=== PATIENT | male | born 1965 | race Caucasian/White ===

== ENCOUNTER 2017-10-27 22:31 | Emergency (ER) | payer OTHER ==
[2017-10-28 03:45] VITALS: RESP 18
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
[2017-10-28 08:12] VITALS: BP 143/89; PULSE 98; TEMP 97
== END 2017-10-28 08:11 | disposition home or self-care (01) ==
LOC: EC 22:31
DX: F10.120 Alcohol abuse with intoxication, uncomplicated (principal); Z87.891 Personal history of nicotine dependence
CPT/HCPCS: 99283

== ENCOUNTER 2020-06-15 17:21 | Emergency (ER) | payer OTHER ==
[2020-06-15 17:47] VITALS: RESP 18
--- NOTE | 2020-06-15 19:15 | XR ---
EXAMINATION TYPE: XR ribs LT w pa chest xray DATE OF EXAM: 06/15/2020 COMPARISON: NONE HISTORY: Left-sided rib pain TECHNIQUE: 6 views FINDINGS: There is no heart failure nor confluent pneumonic infiltrate. There is possible nondisplace d fracture anterior left sixth rib. Costophrenic angles are clear. The clavicles are intact. IMPRESSION: There is probably an acute fracture anterior left sixth rib.
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
[2020-06-16 06:41] VITALS: BP 162/98; PULSE 106; TEMP 97.7
== END 2020-06-16 07:45 | disposition home or self-care (01) ==
LOC: EC 17:21
DX: S22.32XA Fracture of one rib, left side, initial encounter for closed fracture (principal); F10.129 Alcohol abuse with intoxication, unspecified; Y90.9 Presence of alcohol in blood, level not specified; Z59.0 Homelessness; Z87.891 Personal history of nicotine dependence; V29.9XXA Motorcycle rider (driver) (passenger) injured in unspecified traffic accident, initial encounter; Y93.55 Activity, bike riding; Y92.89 Other specified places as the place of occurrence of the external cause
CPT/HCPCS: 82075; 99284

== ENCOUNTER 2021-04-25 23:27 | Emergency (ER) | payer OTHER ==
[2021-04-25 23:40] VITALS: RESP 18; TEMP 99.4
--- NOTE | 2021-04-26 06:17 | ED ---
Alcohol HPI - General Chief Complaint: Alcohol Stated Complaint: ETOH Time Seen by Provider: 04/25/21 23:31 Source: patient, EMS Mode of arrival: EMS Limitations: altered mental status - Related Data Home Medications Medication Instructions Recorded Confirmed No Known Home Medications 10/28/17 06/15/20 Allergies Allergy/AdvReac Type Severity Reaction Status Date / Time No Known Allergies Allergy Verified 04/25/21 23:40 Review of Systems ROS Statement: Those systems with pertinent positive or pertinent negative responses have been documented in the HPI. ROS Other: All systems not noted in ROS Statement are negative. Past Medical History Past Medical History: No Reported History Additional Past Medical History / Comment(s): closed head injury History of Any Multi-Drug Resistant Organisms: None Reported Past Surgical History: Unable to Obtain Past Psychological History: No Psychological Hx Reported Smoking Status: Former smoker, Unknown if ever smoked Past Alcohol Use History: Heavy Past Drug Use History: None Reported General Exam Limitations: altered mental status Course Vital Signs 04/25/21 04/26/21 23:38 02:00 Temperature 99.4 F Pulse Rate 82 77 Respiratory 18 18 Rate Blood Pressure 145/88 143/89 O2 Sat by Pulse 97 97 Oximetry Disposition Clinical Impression: Alcoholic intoxication Disposition: HOME SELF-CARE Condition: Good Instructions (If sedation given, give patient instructions): Alcohol Intoxication (ED) Is patient prescribed a controlled substance at d/c from ED?: No Referrals: None,Stated [Primary Care Provider] - 1-2 days
[2021-04-26 06:34] VITALS: BP 155/88; PULSE 82
== END 2021-04-26 06:34 | disposition home or self-care (01) ==
LOC: EC 23:27
DX: F10.929 Alcohol use, unspecified with intoxication, unspecified (principal); Y90.9 Presence of alcohol in blood, level not specified
CPT/HCPCS: 99284

== ENCOUNTER 2021-05-04 20:50 | Inpatient (IN) | payer OTHER ==
--- NOTE | 2021-05-04 21:21 | ED ---
Chest Pain HPI - General Chief Complaint: Chest Pain Stated Complaint: Chest pain, ETOH Time Seen by Provider: 05/04/21 21:17 Source: patient, EMS, RN notes reviewed, old records reviewed Mode of arrival: EMS Limitations: altered mental status, physical limitation - History of Present Illness Initial Comments: This is a 55-year-old male to the emergency department today. Patient presents with chest pain by EMS, EMS was called patient was walking around [facility] with chest pain today. Patient also admits to drinking 12 beers today. Patient was seen at outside facility recently for similar events and was told that he discontinue his drinking. Patient has not discontinued his drinking. He denies abdominal pain complaints chest pain. MD Complaint: chest pain, other (weakness, not feeling well) -: unknown Onset: during rest, during exertion Pain Location: substernal Pain Radiation: none Severity: moderate Severity scale (1-10): 6 Quality: tightness, heaviness Consistency: constant Improves With: nothing Worsens With: exertion Context: other (Alcohol abuse) Anginal Symptoms: diaphoresis, dyspnea Other Symptoms: palpitations Treatments Prior to Arrival: none - Related Data Home Medications Medication Instructions Recorded Confirmed No Known Home Medications 10/28/17 05/04/21 Allergies Allergy/AdvReac Type Severity Reaction Status Date / Time No Known Allergies Allergy Verified 05/04/21 22:33 Review of Systems ROS Statement: Those systems with pertinent positive or pertinent negative responses have been documented in the HPI. ROS Other: All systems not noted in ROS Statement are negative. EKG Findings - EKG Comments: EKG Findings:: EKG shows nsr 82 pr 150 qrs 90 qtc 488 Past Medical History Past Medical History: No Reported History Additional Past Medical History / Comment(s): closed head injury History of Any Multi-Drug Resistant Organisms: None Reported Past Surgical History: Unable to Obtain Past Psychological History: No Psychological Hx Reported Smoking Status: Former smoker Past Alcohol Use History: Daily, Heavy Past Drug Use History: None Reported General Exam Limitations: no limitations, altered mental status, physical limitation General appearance: alert, in distress, other (Diaphoretic) Head exam: Present: atraumatic, normocephalic, normal inspection Eye exam: Present: normal appearance, PERRL, EOMI. Absent: scleral icterus, conjunctival injection, periorbital swelling ENT exam: Present: normal exam, mucous membranes moist Neck exam: Present: normal inspection. Absent: tenderness, meningismus, lymphadenopathy Respiratory exam: Present: normal lung sounds bilaterally. Absent: respiratory distress, wheezes, rales, rhonchi, stridor Cardiovascular Exam: Present: normal rhythm, tachycardia, normal heart sounds. Absent: systolic murmur, diastolic murmur, rubs, gallop, clicks GI/Abdominal exam: Present: soft, normal bowel sounds. Absent: distended, tenderness, guarding, rebound, rigid Extremities exam: Present: normal inspection, full ROM, normal capillary refill. Absent: tenderness, pedal edema, joint swelling, calf tenderness Back exam: Present: normal inspection Neurological exam: Present: alert, oriented X3, CN II-XII intact Psychiatric exam: Present: normal affect, normal mood Skin exam: Present: warm, dry, intact, normal color, diaphoretic. Absent: rash Course Vital Signs 05/04/21 05/04/21 20:52 21:57 Temperature 98.8 F Pulse Rate 88 86 Respiratory 18 18 Rate Blood Pressure 109/62 119/71 O2 Sat by Pulse 96 96 Oximetry - Reevaluation(s) Reevaluation #1: 05/04/21 23:04 Medical record is reviewed Reevaluation #2: 05/04/21 23:04 Symptoms are persistent here in the emergency department Reevaluation #3: 05/04/21 23:04 Patient is beginning to go through DTs with altered mental status and tremors, severe diaphoresis tachycardia and fever Reevaluation #4: 05/04/21 23:05 Patient informed of results and questions are answered - Consultations Consultation #1: Spoke with PMH who agree to admit this patient Chest Pain MDM - MDM 55 male presenting for alcohol abuse and throughout ER stay beginning to go through DTs, as well as chest pain. Patiently place and chest pain observation, monitoring unstable on CIWA protocol Critical Care Time Critical Care Time: Yes Total Critical Care Time: 31 Disposition Clinical Impression: Alcoholic intoxication, Chest pain, Delirium tremens, Weakness, Altered mental status Disposition: ADMITTED IP TO THIS [facility] Condition: Serious Is patient prescribed a controlled substance at d/c from ED?: No Referrals: None,Stated [Primary Care Provider] - 1-2 days
--- NOTE | 2021-05-04 21:47 | XR ---
EXAMINATION TYPE: XR chest 1V portable DATE OF EXAM: 05/04/2021 COMPARISON: 06/15/2020 HISTORY: Chest pain TECHNIQUE: FINDINGS: There is no heart failure nor confluent pneumonic infiltrate. Costophrenic angles are clear . There are no hilar masses. There is questionable infiltrate lateral to the right pulmonary hilum. T here is no pleural effusion. Bony thorax is intact. IMPRESSION: Possible new right perihilar infiltrate compared to old exam. No heart failure.
[2021-05-04 22:08] LABS: Partial Thromboplastin Time 23.9 sec (22.0-30.0); Prothrombin Time 10.4 sec (9.0-12.0)
[2021-05-04 22:23] LABS: ALT 34 U/L (4-49); AST 42 U/L (17-59); African American GFR (CKD) >90 (>60 ml/min/1.73 sqM); Albumin 3.6 g/dL (3.5-5.0); Alkaline Phosphatase 65 U/L (38-126); Anion Gap 11 mmol/L; Blood Urea Nitrogen 17 mg/dL (9-20); Calcium 8.7 mg/dL (8.4-10.2); Carbon Dioxide 24 mmol/L (22-30); Chloride 106 mmol/L (98-107); Creatine Kinase 191 U/L (55-170); Glucose 95 mg/dL (74-99); Magnesium 1.3 mg/dL (1.6-2.3); Non-African American GFR(CKD) 81 (>60 ml/min/1.73 sqM); Potassium 3.7 mmol/L (3.5-5.1); Sodium 141 mmol/L (137-145); Total Bilirubin <0.1 mg/dL (0.2-1.3); Total Protein 6.2 g/dL (6.3-8.2)
[2021-05-04 22:43] LABS: Basophils % (A) 0 %; Eosinophils # (A) 0.1 k/uL (0-0.7); Eosinophils % (A) 2 %; HGB 12.4 gm/dL (13.0-17.5); Lymphocytes # (A) 1.3 k/uL (1.0-4.8); Lymphocytes % (A) 36 %; MCHC 34.4 g/dL (31.0-37.0); MCV 98.9 fL (80.0-100.0); Macrocytosis Slight; Mean Platelet Volume 6.8; Monocytes # (A) 0.2 k/uL (0-1.0); Monocytes % (A) 7 %; Neutrophils # (A) 1.8 k/uL (1.3-7.7); Neutrophils % (A) 51 %; Platelet Count 186 k/uL (150-450); RBC 3.64 m/uL (4.30-5.90); RDW 15.3 % (11.5-15.5); WBC 3.5 k/uL (3.8-10.6)
[2021-05-04] MEDS ORDERED: NALOXONE 0.4 MG/ML 1 ML VIAL IV PRN (22:58)
[2021-05-04] MEDS ORDERED: THIAMINE 100 MG/ML 2 ML VIAL IM STA (22:58)
[2021-05-04] MEDS ORDERED: LORazepam 2 MG/ML INJ IV PRN ×3 (22:58)
[2021-05-04] MEDS ORDERED: ONDANSETRON 4 MG/2 ML VIAL IVP PRN (22:58)
[2021-05-04] MEDS ORDERED: MORPHINE SULFATE 4 MG/ML SYRINGE IV PRN (22:58)
[2021-05-04] MEDS ORDERED: SODIUM CHLORIDE 0.9% 500 ML 500 ML IV STA (23:00)
[2021-05-04] MEDS ORDERED: SODIUM CHLORIDE 0.9% 1,000 ML IV STA ×2 (23:00)
[2021-05-04] MEDS ORDERED: PANTOPRAZOLE 40 MG/10 ML VIAL IVP STA (23:00)
[2021-05-04] MEDS ORDERED: HEPARIN SODIUM 1,000 UN/ML (10ML VL) IV ONE (23:33)
[2021-05-04] MEDS ORDERED: diphenhydrAMINE 50 MG/ML 1 ML VIAL IVP STA (23:37)
[2021-05-04] MEDS ORDERED: methylPREDNISolone SOD SUCCI 125 MG/2 ML VIAL IV STA (23:37)
[2021-05-04] MEDS: MAGNESIUM SULFATE-D5W PMX 1 GM in DEXTROSE/WATER 1 100ML.BAG IVPB SCH (23:41)
[2021-05-04] MEDS: DEXTROSE 5%-0.45% NACL 1,000 ML IV SCH (23:48)
[2021-05-04] MEDS: HEPARIN SOD,PORK IN 0.45% NACL 25,000 UNIT in 0.45% NACL 1 250ML.BAG IV SCH (23:56)
[2021-05-05] MEDS: DIAZEPAM 5 MG/ML 2 ML INJ IVP SCH ×4 (00:05→16:14)
[2021-05-05] MEDS: MAGNESIUM SULFATE-D5W PMX 1 GM in DEXTROSE/WATER 1 100ML.BAG IVPB SCH ×2 (00:38→01:44)
[2021-05-05] MEDS: THIAMINE 100 MG TAB PO SCH ×2 (06:36→16:13)
[2021-05-05 07:36] LABS: Basophils % (A) 0 %; Eosinophils % (A) 0 %; HCT 43.2 % (39.0-53.0); HGB 14.1 gm/dL (13.0-17.5); Lymphocytes # (A) 0.4 k/uL (1.0-4.8); Lymphocytes % (A) 5 %; MCH 32.9 pg (25.0-35.0); MCHC 32.6 g/dL (31.0-37.0); MCV 100.9 fL (80.0-100.0); Macrocytosis Slight; Mean Platelet Volume 6.6; Monocytes # (A) 0.1 k/uL (0-1.0); Monocytes % (A) 2 %; Neutrophils # (A) 6.1 k/uL (1.3-7.7); Neutrophils % (A) 92 %; Platelet Count 169 k/uL (150-450); RBC 4.28 m/uL (4.30-5.90); RDW 15.1 % (11.5-15.5); WBC 6.7 k/uL (3.8-10.6)
[2021-05-05 07:47] LABS: ALT 31 U/L (4-49); AST 33 U/L (17-59); African American GFR (CKD) >90 (>60 ml/min/1.73 sqM); Albumin 3.6 g/dL (3.5-5.0); Alkaline Phosphatase 78 U/L (38-126); Anion Gap 7 mmol/L; Blood Urea Nitrogen 16 mg/dL (9-20); Calcium 8.4 mg/dL (8.4-10.2); Carbon Dioxide 21 mmol/L (22-30); Chloride 107 mmol/L (98-107); Glucose 169 mg/dL (74-99); Magnesium 1.8 mg/dL (1.6-2.3); Non-African American GFR(CKD) >90 (>60 ml/min/1.73 sqM); Potassium 4.5 mmol/L (3.5-5.1); Sodium 135 mmol/L (137-145); Total Bilirubin 0.5 mg/dL (0.2-1.3); Total Protein 6.3 g/dL (6.3-8.2)
[2021-05-05] MEDS ORDERED: HEPARIN SODIUM 1,000 UN/ML (10ML VL) IV ONE (08:17)
--- NOTE | 2021-05-05 08:42 | XR ---
EXAMINATION TYPE: XR chest 1V portable DATE OF EXAM: 05/05/2021 COMPARISON: 05/04/2021 INDICATION: Infiltrates abnormal chest x-ray chest pain TECHNIQUE: Single frontal view of the chest is obtained. FINDINGS: The heart size is normal. The pulmonary vasculature is normal. Streak opacification of the right midlung. Correlate for atelectasis. IMPRESSION: 1. Streak atelectasis right midlung. Continued follow-up is recommended
[2021-05-05] MEDS ORDERED: PANTOPRAZOLE 40 MG/10 ML VIAL IV SCH (09:00)
[2021-05-05] MEDS: FAMOTIDINE 20 MG/2 ML VIAL IV SCH (09:10)
[2021-05-05] MEDS: DEXTROSE 5%-0.45% NACL 1,000 ML IV SCH ×2 (09:10→18:08)
--- NOTE | 2021-05-05 11:40 | P.CRDCN ---
History of Present Illness Consult date: 05/05/21 Chief complaint: Heart racing History of present illness: This is a 55-year-old gentleman who does not take any medications at home but was diagnosed with high blood pressure in the past presented to the emergency department complaining of chest discomfort and heart racing. He was drinking he was yesterday and he states that he drink 16 beers yesterday when he felt his heart start racing up and he felt dizzy and lightheaded. He did not lose his consciousness. He describes with that also chest discomfort. Currently he is chest pain-free. When he presented to the emergency department he was in atrial fibrillation with rapid ventricular response and subsequently he was converted to normal sinus mechanism. Currently he is in normal sinus mechanism with sinus tachycardia. The troponin came in to be unremarkable. The chest x-ray did not show any acute abnormalities. The EKG showed sinus rhythm without any significant ST or T-wave abnormalities. Currently the patient is on heparin IV. He is not on any AV rashid abdirashid agent would start the patient on Toprol-XL 25 mg by mouth daily. We will obtain an echocardiogram as well Past Medical History Past Medical History: No Reported History Additional Past Medical History / Comment(s): closed head injury History of Any Multi-Drug Resistant Organisms: None Reported Past Surgical History: Unable to Obtain Past Psychological History: No Psychological Hx Reported Smoking Status: Never smoker Past Alcohol Use History: Daily, Heavy Past Drug Use History: None Reported Medications and Allergies Home Medications Medication Instructions Recorded Confirmed Type No Known Home Medications 10/28/17 05/04/21 History Allergies Allergy/AdvReac Type Severity Reaction Status Date / Time No Known Allergies Allergy Verified 05/04/21 22:33 Physical Exam Vitals: Vital Signs Temp Pulse Pulse Resp BP BP Pulse Ox 05/05/21 08:00 97.8 F 82 18 160/96 99 05/05/21 04:00 98.4 F 68 18 122/67 98 05/05/21 02:00 98.3 F 73 85 18 119/66 137/86 97 05/05/21 01:00 76 18 118/67 05/05/21 00:10 91 18 98/74 05/05/21 00:00 151 H 18 114/101 100 05/04/21 23:50 126 H 18 140/94 100 05/04/21 23:28 137 H 18 101/70 99 05/04/21 23:23 137 H 18 115/71 98 05/04/21 23:14 131 H 20 96/75 99 05/04/21 23:10 132 H 20 82/67 94 L 05/04/21 23:00 146 H 22 95/65 85 L 05/04/21 21:57 86 18 119/71 96 05/04/21 20:52 98.8 F 88 18 109/62 96 Intake and Output 05/04/21 05/05/21 05/05/21 22:59 06:59 14:59 Intake Total 82.617 Output Total 600 525 Balance -600 -442.383 Intake: Intake, IV Titration 82.617 Amount Heparin Sod,Pork in 0.45% 82.617 NaCl 25,000 unit In 0.45 % NaCl 1 250ml.bag @ 9.18 UNITS/KG/HR 9.994 mls/hr IV .Q24H [facility] Rx#: [id number] Output: Urine 600 525 Other: Voiding Method Urinal Urinal Weight 108.862 kg 107 kg - Constitutional General appearance: no acute distress - Respiratory Respiratory: bilateral: CTA - Cardiovascular Rhythm: regular Heart sounds: normal: S1, S2 Abnormal Heart Sounds: systolic murmur Results 05/05/21 07:08 05/05/21 07:08 Cardiac Enzymes 05/04/21 05/04/21 05/04/21 Range/Units 21:41 21:41 23:39 AST 42 (17-59) U/L Troponin I <0.012 <0.012 (0.000-0.034) ng/mL 05/05/21 05/05/21 Range/Units 02:47 07:08 AST 33 (17-59) U/L Troponin I 0.022 (0.000-0.034) ng/mL Coagulation 05/04/21 05/05/21 Range/Units 21:41 07:08 PT 10.4 (9.0-12.0) sec APTT 23.9 30.6 H (22.0-30.0) sec CBC 05/04/21 05/05/21 Range/Units 21:41 07:08 WBC 3.5 L 6.7 (3.8-10.6) k/uL RBC 3.64 L 4.28 L (4.30-5.90) m/uL Hgb 12.4 L 14.1 (13.0-17.5) gm/dL Hct 36.0 L 43.2 (39.0-53.0) % Plt Count 186 169 (150-450) k/uL Comprehensive Metabolic Panel 05/04/21 05/05/21 Range/Units 21:41 07:08 Sodium 141 135 L (137-145) mmol/L Potassium 3.7 4.5 (3.5-5.1) mmol/L Chloride 106 107 (98-107) mmol/L Carbon Dioxide 24 21 L (22-30) mmol/L BUN 17 16 (9-20) mg/dL Creatinine 1.05 0.70 (0.66-1.25) mg/dL Glucose 95 169 H (74-99) mg/dL Calcium 8.7 8.4 (8.4-10.2) mg/dL AST 42 33 (17-59) U/L ALT 34 31 (4-49) U/L Alkaline Phosphatase 65 78 (38-126) U/L Total Protein 6.2 L 6.3 (6.3-8.2) g/dL Albumin 3.6 3.6 (3.5-5.0) g/dL Current Medications Generic Name Dose Route Start Last Admin Trade Name Dwightq PRN Reason Stop Dose Admin Diazepam 5 mg 05/04/21 23:00 05/05/21 04:50 Diazepam 5 Mg/Ml 2 Ml Inj IVP 5 mg Q6H [facility] Administration Famotidine 20 mg 05/05/21 09:00 05/05/21 09:10 Famotidine 20 Mg/2 Ml Vial IV 20 mg DAILY [facility]IL[facility] Administration Dextrose/Sodium Chloride 1,000 mls @ 100 mls/hr 05/04/21 23:00 05/05/21 09:10 Dextrose 5%-1/2ns Iv Soln IV 100 mls/hr .Q10H [facility] Administration Heparin Sodium/Sodium Chloride 250 mls @ 9.994 mls/hr 05/04/21 23:45 05/05/21 08:12 25,000 unit/ Sodium Chloride IV 12.18 units/kg/hr .Q24H [facility] 13.259 mls/hr Titration Protocol 9.18 UNITS/KG/HR Lorazepam 1 mg 05/04/21 22:58 Lorazepam 2 Mg/Ml Inj IV Q2HR PRN CIWA 8 or 9 Lorazepam 1 mg 05/04/21 22:58 05/05/21 09:22 Lorazepam 2 Mg/Ml Inj IV 1 mg Q1HR PRN Administration CIWA 10 to 15 Lorazepam 2 mg 05/04/21 22:58 Lorazepam 2 Mg/Ml Inj IV 05/06/21 22:58 Q10M PRN CIWA 16 or higher Morphine Sulfate 4 mg 05/04/21 22:58 Morphine Sulfate 4 Mg/Ml Syringe IV Q4HR PRN Severe Pain Naloxone HCl 0.2 mg 05/04/21 22:58 Naloxone 0.4 Mg/Ml 1 Ml Vial IV Q2M PRN Opioid Reversal Ondansetron HCl 4 mg 05/04/21 22:58 Ondansetron 4 Mg/2 Ml Vial IVP Q8HR PRN Nausea And Vomiting Pantoprazole Sodium 40 mg 05/05/21 09:00 05/05/21 09:10 Pantoprazole 40 Mg/10 Ml Vial IV 40 mg DAILY ADILSON Administration Thiamine HCl 100 mg 05/05/21 07:30 05/05/21 06:36 Thiamine 100 Mg Tab PO 100 mg BID-W/MEALS ADILSON Administration Intake and Output 05/04/21 05/05/21 05/05/21 22:59 06:59 14:59 Intake Total 82.617 Output Total 600 525 Balance -600 -442.383 Intake: Intake, IV Titration 82.617 Amount Heparin Sod,Pork in 0.45% 82.617 NaCl 25,000 unit In 0.45 % NaCl 1 250ml.bag @ 9.18 UNITS/KG/HR 9.994 mls/hr IV .Q24H [facility] Rx#: [id number] Output: Urine 600 525 Other: Voiding Method Urinal Urinal Weight 108.862 kg 107 kg 05/05/21 07:08 05/05/21 07:08 Assessment and Plan Assessment: Assessment #1 atrial fibrillation with rapid ventricular response likely to be triggered by excessive alcohol use #2 history of excessive alcohol use #3 possible underlying history of hypertension #4 overweight Plan #1 continue heparin IV #2 consider oral anticoagulation #3 obtain an echo with Doppler #4 start the patient on beta abdirashid with metoprolol. #5 if she goes into DT then would stop the beta abdirashid and start the patient back on Cardizem drip
[2021-05-05] MEDS ORDERED: METOPROLOL SUCCINATE (ER) 25 MG TAB.ER.24H PO SCH (11:45)
[2021-05-05] MEDS: METOPROLOL SUCCINATE (ER) 25 MG TAB.ER.24H PO SCH (13:52)
--- NOTE | 2021-05-05 14:01 | P.HPIM ---
History of Present Illness This is a pleasant 55 years old male who presents with left-sided chest pain. Patient states that he has chest pain of one-day duration, associated with little dyspnea, on the left side of the chest radiating to the left arm about 6 /10 in severity felt like sharp. No associated dyspnea, but no phlegm. Currently he denies any itching or rash which he had in the emergency room. He denies any GI or urinary symptoms. He has no headache or dizziness. He denies smoking, illicit drugs he drinks about a case of beer/12.. He denies hopelessness/helplessness, no signs or symptoms of depression. He denies suicidal ideation In reviewing the records from [facility] he was admitted to the hospital emergency room on 05/01 where he was brought in by police stating that he was chest pain and tach to much. It stabilized from emergency room and discharged with recommendation for close follow-up Also he was at [facility] in [facility], followed by [place] [employer] running around [place] intoxicated. At that time he informed he was trying to sleep outside [place] in the emergency room Pt has generalized rash/hives on truncal region and chest. Pt has facial edema. Per EC RN, the pt had this rash in the EC and was given Benadryl and Solumedrol. Pt denies shortness of breath at this time. No known allergies. Because of this as she was placed on nonrebreather for a short while, he is given Solu-Medrol, Benadryl. Currently he is breathing quietly and saturating 98% on 4 L oxygen. While he was in the emergency room was noticed to develop atrial fibrillation's with RVR. With heart rate was as high as 1:30 on EKG. Chest x-ray, possible new right perihilar infiltrate compared to old exam. No heart failure Currently vital signs stable, is afebrile. Heart rate 68 months reason rate is 18. Blood pressure 122/67. Labs showing WBC of 6.7K, hemoglobin of 14.1. Platelet is normal. INR and BMP, liver enzymes were unremarkable. Resume was low at 1.3. Serial troponin were negative with less than 0.012. Lipase is normal at 98 On admission he was started on heparin drip, Valium 5 mg every 6 hours, D5 half- normal saline at 100 mL per hour, CIWA protocol, Solu-Medrol 125 mg 1. Thiamine Review of Systems CONSTITUTIONAL: No fever, no malaise, no fatigue. HEENT: No recent visual problems or hearing problems. Denied any sore throat. CARDIOVASCULAR: No orthopnea, PND, no palpitations, no syncope. PULMONARY: No shortness of breath, no cough, no hemoptysis. GASTROINTESTINAL: No diarrhea, no nausea, no vomiting, no abdominal pain. Normoactive bowel sounds. NEUROLOGICAL: No headaches, no weakness, no numbness. HEMATOLOGICAL: Denies any bleeding or petechiae. GENITOURINARY: Denies any burning micturition, frequency, or urgency. MUSCULOSKELETAL/RHEUMATOLOGICAL: Denies any joint pain, swelling, or any muscle pain. ENDOCRINE: Denies any polyuria or polydipsia. Past Medical History Past Medical History: No Reported History Additional Past Medical History / Comment(s): closed head injury History of Any Multi-Drug Resistant Organisms: None Reported Past Surgical History: Unable to Obtain Past Psychological History: No Psychological Hx Reported Smoking Status: Never smoker Past Alcohol Use History: Daily, Heavy Past Drug Use History: None Reported Medications and Allergies Home Medications Medication Instructions Recorded Confirmed Type No Known Home Medications 10/28/17 05/04/21 History Allergies Allergy/AdvReac Type Severity Reaction Status Date / Time No Known Allergies Allergy Verified 05/04/21 22:33 Physical Exam Vitals: Vital Signs Temp Pulse Pulse Resp BP BP Pulse Ox 05/05/21 04:00 98.4 F 68 18 122/67 98 05/05/21 02:00 98.3 F 73 85 18 119/66 137/86 97 05/05/21 01:00 76 18 118/67 05/05/21 00:10 91 18 98/74 05/05/21 00:00 151 H 18 114/101 100 05/04/21 23:50 126 H 18 140/94 100 05/04/21 23:28 137 H 18 101/70 99 05/04/21 23:23 137 H 18 115/71 98 05/04/21 23:14 131 H 20 96/75 99 05/04/21 23:10 132 H 20 82/67 94 L 05/04/21 23:00 146 H 22 95/65 85 L 05/04/21 21:57 86 18 119/71 96 05/04/21 20:52 98.8 F 88 18 109/62 96 Intake and Output 05/04/21 05/05/21 05/05/21 22:59 06:59 14:59 Output Total 600 Balance -600 Output: Urine 600 Other: Voiding Method Urinal Weight 108.862 kg 107 kg GENERAL: The patient is alert and oriented x3, not in any acute distress. Well developed, well nourished. HEENT: Pupils are round and equally reacting to light. EOMI. No scleral icterus. No conjunctival pallor. Normocephalic, atraumatic. No pharyngeal erythema. No thyromegaly. CARDIOVASCULAR: S1 and S2 present. No murmurs, rubs, or gallops. PULMONARY: Chest is clear to auscultation, no wheezing or crackles. ABDOMEN: Soft, nontender, nondistended, normoactive bowel sounds. No palpable organomegaly. MUSCULOSKELETAL: No joint swelling or deformity. EXTREMITIES: No cyanosis, clubbing, or pedal edema. NEUROLOGICAL: Gross neurological examination did not reveal any focal deficits. SKIN: No rashes. No petechiae Results CBC & Chem 7: 05/05/21 07:08 05/05/21 07:08 Labs: Abnormal Lab Results - Last 24 Hours (Table) 05/04/21 05/04/21 Range/Units 21:41 21:41 WBC 3.5 L (3.8-10.6) k/uL RBC 3.64 L (4.30-5.90) m/uL Hgb 12.4 L (13.0-17.5) gm/dL Hct 36.0 L (39.0-53.0) % Magnesium 1.3 L (1.6-2.3) mg/dL Total Bilirubin <0.1 L (0.2-1.3) mg/dL Creatine Kinase 191 H (55-170) U/L Total Protein 6.2 L (6.3-8.2) g/dL Assessment and Plan Assessment: Chest pain, rule out cardiac causes New onset atrial fibrillation with RVR Alcohol intoxication on admission and abuse at-risk of alcohol withdrawal possible new right perihilar infiltrate compared to old exam Generalized rash on the trunk and chest Homeless state Alcohol level is elevated at 76 Plan: This is a pleasant 55 years old male who presents with chest pain and alcohol intoxication cardiology consult, continue with heparin 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 Continue same treatment. Continue with symptomatic treatment. Resume home medication. Monitor lytes and vitals. DVT and GI prophylaxis. Further recommendations depends on the clinical course of the patient DVT prophylaxis: heparin GI Prophylaxis: Pepcid PT/OT: Pending Prognosis is guarded
[2021-05-05] MEDS: HEPARIN SOD,PORK IN 0.45% NACL 25,000 UNIT in 0.45% NACL 1 250ML.BAG IV SCH (18:08)
[2021-05-06] MEDS: DEXTROSE 5%-0.45% NACL 1,000 ML IV SCH ×2 (03:15→16:13)
[2021-05-06] MEDS: THIAMINE 100 MG TAB PO SCH ×2 (06:32→16:14)
[2021-05-06 08:31] LABS: Magnesium 1.6 mg/dL (1.6-2.3); Potassium 3.6 mmol/L (3.5-5.1)
[2021-05-06 08:32] LABS: Basophils % (A) 0 %; Eosinophils % (A) 0 %; HCT 39.3 % (39.0-53.0); HGB 12.9 gm/dL (13.0-17.5); Lymphocytes # (A) 0.8 k/uL (1.0-4.8); Lymphocytes % (A) 10 %; MCH 33.3 pg (25.0-35.0); MCHC 32.8 g/dL (31.0-37.0); MCV 101.4 fL (80.0-100.0); Macrocytosis Slight; Mean Platelet Volume 7.5; Monocytes # (A) 0.2 k/uL (0-1.0); Monocytes % (A) 3 %; Neutrophils # (A) 6.9 k/uL (1.3-7.7); Neutrophils % (A) 86 %; Platelet Count 183 k/uL (150-450); RBC 3.88 m/uL (4.30-5.90); RDW 15.2 % (11.5-15.5)
[2021-05-06] MEDS ORDERED: PANTOPRAZOLE 40 MG TABLET PO SCH (09:00)
[2021-05-06] MEDS: METOPROLOL SUCCINATE (ER) 25 MG TAB.ER.24H PO SCH (09:19)
[2021-05-06] MEDS: diazePAM 2 MG TAB PO SCH ×3 (09:19→22:52)
[2021-05-06] MEDS: FAMOTIDINE 20 MG/2 ML VIAL IV SCH (09:29)
--- NOTE | 2021-05-06 10:14 | XR ---
EXAMINATION TYPE: XR chest 2V DATE OF EXAM: 05/06/2021 COMPARISON: 05/05/2021 INDICATION: Atelectasis, chest pain TECHNIQUE: Frontal and lateral views of the chest are obtained. FINDINGS: The heart size is normal. The pulmonary vasculature is normal. The lungs are clear. Previous plate atelectasis in the right midlung has resolved. IMPRESSION: 1. Resolution of previous right atelectasis
--- NOTE | 2021-05-06 10:50 | P.PN ---
Subjective This is a pleasant 55-year-old male past medical history significant for heavy daily alcohol intake. He is seen and examined resting comfortably lying flat in bed in no acute distress. He denies any further symptoms of chest discomfort. He is maintaining sinus mechanism on telemetry tracings. Blood pressure 154/89 heart rate 71 afebrile maintaining oxygen saturation on room air. Laboratory data reviewed, magnesium 1.6, potassium 3.6, WBC 8, hemoglobin 12.9 and platelets 183. Currently maintained on IV heparin infusion. Chest x- ray this morning reveals resolution of previously noted right atelectasis. No acute cardiopulmonary process. GENERAL: Well-appearing, well-nourished and in no acute distress. NECK: Supple without JVD or thyromegaly. LUNGS: Breath sounds clear to auscultation bilaterally. Respiration equal and un labored. No wheezes, rales or rhonchi. HEART: Regular rate and rhythm with systolic ejection murmur at the base, no rubs or gallops. S1 and S2 heard. EXTREMITIES: Normal range of motion, no edema. No clubbing or cyanosis. Peripheral pulses intact. ASSESSMENT Paroxysmal atrial fibrillation, currently maintaining sinus rhythm History of daily excessive alcohol intake Obesity, BMI 33 PLAN Chads-vasc score is 0, no need for long-term anticoagulation. Discontinue heparin infusion. Echocardiogram has been obtained and will be reviewed. Atrial fibrillation likely related to heavy alcohol use, complete alcohol cessation discussed. Follow up with Dr. Durand upon discharge. Nurse Practitioner note has been reviewed, I agree with a documented findings and plan of care. Patient was seen and examined. Objective - Vital Signs Vital signs: Vital Signs Temp 98.0 F 05/06/21 03:30 Pulse 71 05/06/21 03:30 Resp 18 05/06/21 03:30 BP 154/89 05/06/21 03:30 Pulse Ox 97 05/06/21 03:30 Intake & Output 05/05/21 05/06/21 05/06/21 18:59 06:59 18:59 Intake Total 994.323 437.338 Output Total 1175 3000 600 Balance -180.677 -3000 -162.662 Weight 105.6 kg Intake: Intake, IV Titration 214.323 197.338 Amount Heparin Sod,Pork in 0.45% 214.323 197.338 NaCl 25,000 unit In 0.45 % NaCl 1 250ml.bag @ 9.18 UNITS/KG/HR 9.994 mls/hr IV .Q24H [facility] Rx#: [id number] Oral 780 240 Output: Urine 1175 3000 600 Other: Voiding Method Urinal Urinal # Voids 1 # Bowel Movements 1 - Labs CBC & Chem 7: 05/06/21 07:36 05/06/21 07:36 Labs: Abnormal Lab Results - Last 24 Hours (Table) 05/05/21 05/06/21 05/06/21 Range/Units 14:41 07:36 07:36 RBC 3.88 L (4.30-5.90) m/uL Hgb 12.9 L (13.0-17.5) gm/dL MCV 101.4 H (80.0-100.0) fL Lymphocytes # 0.8 L (1.0-4.8) k/uL APTT 51.6 H 36.8 H (22.0-30.0) sec
--- NOTE | 2021-05-06 11:19 | ECHOF ---
Referral Reason:Chest pain MEASUREMENTS -------- HEIGHT: 177.8 cm WEIGHT: 105.2 kg BP: 154/89 RVIDd: 3.7 cm (< 3.3) IVSd: 1.6 cm (0.6 - 1.1) LVIDd: 4.8 cm (3.9 - 5.3) LVPWd: 1.5 cm (0.6 - 1.1) IVSs: 2.2 cm LVIDs: 3.3 cm LVPWs: 2.0 cm LA Diam: 3.7 cm (2.7 - 3.8) LAESV Index (A-L): 37.73 ml/m Ao Diam: 3.7 cm (2.0 - 3.7) AV Cusp: 2.6 cm (1.5 - 2.6) MV EXCURSION: 19.089 mm (> 18.000) MV EF SLOPE: 144 mm/s (70 - 150) EPSS: 1.9 cm MV E Sedrick: 0.93 m/s MV DecT: 243 ms MV A Sedrick: 0.87 m/s MV E/A Ratio: 1.08 AR PHT: 645 ms RAP: 5.00 mmHg RVSP: 43.77 mmHg FINDINGS -------- Sinus rhythm. This was a technically adequate study. The left ventricular size is normal. There is moderate concentric left ventricular hypertrophy. O verall left ventricular systolic function is mild-moderately impaired with, an EF between 40 - 45 %. Basal lateral LV wall motion is hypokinetic. Basal posterior LV wall motion is hypokinetic. M id lateral LV wall motion is hypokinetic. Mid posterior LV wall motion is hypokinetic. The right ventricle is mild to moderately enlarged. LA is moderately dilated 34-39 ml/m2 The right atrium is normal in size. Interatrial and interventricular septum intact. There is mild aortic regurgitation. Mild tricuspid regurgitation present. There is mild pulmonary hypertension. The right ventricular systolic pressure, as measured by Doppler, is 43.77mmHg. Trace/mild (physiologic) pulmonic regurgitation. The aortic root size is normal. There is no pericardial effusion. CONCLUSIONS -------- 1. The left ventricular size is normal. 2. There is moderate concentric left ventricular hypertrophy. 3. Overall left ventricular systolic function is mild-moderately impaired with, an EF between 40 - 45 %. 4. Basal lateral LV wall motion is hypokinetic. 5. Basal posterior LV wall motion is hypokinetic. 6. Mid lateral LV wall motion is hypokinetic. 7. Mid posterior LV wall motion is hypokinetic. 8. The right ventricle is mild to moderately enlarged. 9. LA is moderately dilated 34-39 ml/m2 10. There is mild aortic regurgitation. 11. Mild tricuspid regurgitation present. 12. There is mild pulmonary hypertension. 13. The right ventricular systolic pressure, as measured by Doppler, is 43.77mmHg. 14. Trace/mild (physiologic) pulmonic regurgitation. 15. There is no pericardial effusion. PHOTOGRAPHIC EQUIPMENT INSPECTOR: Danae Escalona RDCS
[2021-05-06] MEDS ORDERED: Magnesium Replacement Protocol 1 EACH MISC MISCELLANE PRN (11:41)
[2021-05-06] MEDS ORDERED: POTASSIUM CHLORIDE ER 20 MEQ TAB.ER PO SCH (12:00)
[2021-05-06] MEDS: MAGNESIUM SULFATE-D5W PMX 1 GM in DEXTROSE/WATER 1 100ML.BAG IVPB SCH ×2 (12:11→16:12)
[2021-05-06] MEDS ORDERED: POTASSIUM CHLORIDE ER 20 MEQ TAB.ER PO STA (12:39)
--- NOTE | 2021-05-06 12:43 | P.PN ---
Subjective This is a pleasant 55 years old male who presents with left-sided chest pain. Patient states that he has chest pain of one-day duration, associated with little dyspnea, on the left side of the chest radiating to the left arm about 6/10 in severity felt like sharp. No associated dyspnea, but no phlegm. Currently he denies any itching or rash which he had in the emergency room. He denies any GI or urinary symptoms. He has no headache or dizziness. He denies smoking, illicit drugs he drinks about a case of /12.. He denies hopelessness/helplessness, no signs or symptoms of depression. He denies suicidal ideation In reviewing the records from [facility] he was admitted to the hospital emergency room on 05/01 where he was brought in by police stating that he was chest pain and tach to much. It stabilized from emergency room and discharged with recommendation for close follow-up Also he was at [facility] in [facility], followed by [place] [employer] [facility] [place] [facility]. At that time he informed he was trying to sleep outside [place] in the emergency room Pt has generalized rash/hives on truncal region and chest. Pt has facial edema. Per EC RN, the pt had this rash in the EC and was given Benadryl and Solumedrol. Pt denies shortness of breath at this time. No known allergies. Because of this as she was placed on nonrebreather for a short while, he is given Solu-Medrol, Benadryl. Currently he is breathing quietly and saturating 98% on 4 L oxygen. While he was in the emergency room was noticed to develop atrial fibrillation's with RVR. With heart rate was as high as 1:30 on EKG. Chest x-ray, possible new right perihilar infiltrate compared to old exam. No heart failure Currently vital signs stable, is afebrile. Heart rate 68 months reason rate is 18. Blood pressure 122/67. Labs showing WBC of 6.7K, hemoglobin of 14.1. Platelet is normal. INR and BMP, liver enzymes were unremarkable. Resume was low at 1.3. Serial troponin were negative with less than 0.012. Lipase is normal at 98 On admission he was started on heparin drip, Valium 5 mg every 6 hours, D5 half- normal saline at 100 mL per hour, CIWA protocol, Solu-Medrol 125 mg 1. Thiamine 05/06/2021 Patient clinically is doing better, no chest pain or dyspnea. 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 when he went to see the patient told him he change his mind and he does not want to go to [place] anymore Chest x-ray today showing improved atelectasis Objective - Vital Signs Vital signs: Vital Signs Temp 97.9 F 05/06/21 08:00 Pulse 76 05/06/21 08:00 Resp 18 05/06/21 08:00 BP 148/89 05/06/21 08:00 Pulse Ox 97 05/06/21 08:00 Intake & Output 05/05/21 05/06/21 05/06/21 18:59 06:59 18:59 Intake Total 994.323 437.338 Output Total 1175 3000 1000 Balance -180.677 -3000 -562.662 Weight 105.6 kg Intake: Intake, IV Titration 214.323 197.338 Amount Heparin Sod,Pork in 0.45% 214.323 197.338 NaCl 25,000 unit In 0.45 % NaCl 1 250ml.bag @ 9.18 UNITS/KG/HR 9.994 mls/hr IV .Q24H [facility] Rx#: [id number] Oral 780 240 Output: Urine 1175 3000 1000 Other: Voiding Method Urinal Urinal Urinal # Voids 1 # Bowel Movements 1 1 - Exam GENERAL: The patient is alert and oriented x3, not in any acute distress. Well developed, well nourished. HEENT: Pupils are round and equally reacting to light. EOMI. No scleral icterus. No conjunctival pallor. Normocephalic, atraumatic. No pharyngeal erythema. No thyromegaly. CARDIOVASCULAR: S1 and S2 present. No murmurs, rubs, or gallops. PULMONARY: Chest is clear to auscultation, no wheezing or crackles. ABDOMEN: Soft, nontender, nondistended, normoactive bowel sounds. No palpable organomegaly. MUSCULOSKELETAL: No joint swelling or deformity. EXTREMITIES: No cyanosis, clubbing, or pedal edema. NEUROLOGICAL: Gross neurological examination did not reveal any focal deficits. SKIN: No rashes. no petechiae. - Labs CBC & Chem 7: 05/06/21 07:36 05/06/21 07:36 Labs: Abnormal Lab Results - Last 24 Hours (Table) 05/05/21 05/06/21 05/06/21 Range/Units 14:41 07:36 07:36 RBC 3.88 L (4.30-5.90) m/uL Hgb 12.9 L (13.0-17.5) gm/dL MCV 101.4 H (80.0-100.0) fL Lymphocytes # 0.8 L (1.0-4.8) k/uL APTT 51.6 H 36.8 H (22.0-30.0) sec Assessment and Plan Assessment: Assessment and Plan Chest pain, resolved, automotive technician instructor Cleared The patient for discharge New onset atrial fibrillation with RVR, rate controlled with metoprolol. 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 The patient, Dr. Richmond as an outpatient Valium was lowered from 5 mg Dilaudid 2 mg 3 times a day Continue with CIWA protocol and thiamine Labs and medication were reviewed.. Continue same treatment. Continue with symptomatic treatment. Resume home medication. Monitor lytes and vitals. DVT and GI prophylaxis. Further recommendations depends on the clinical course of the patient DVT prophylaxis: heparin GI Prophylaxis: Pepcid Possible discharge in 24 hours to 48 hours if he keeps improvement
[2021-05-06] MEDS: ACETAMINOPHEN TAB 325 MG TAB PO PRN (21:20)
[2021-05-07] MEDS: THIAMINE 100 MG TAB PO SCH ×2 (06:24→15:50)
[2021-05-07] MEDS: DEXTROSE 5%-0.45% NACL 1,000 ML IV SCH ×2 (08:44→10:00)
[2021-05-07] MEDS: FAMOTIDINE 20 MG/2 ML VIAL IV SCH (08:50)
[2021-05-07] MEDS: diazePAM 2 MG TAB PO SCH ×3 (08:50→23:02)
[2021-05-07] MEDS: METOPROLOL SUCCINATE (ER) 25 MG TAB.ER.24H PO SCH (08:50)
[2021-05-07 09:02] LABS: Magnesium 1.8 mg/dL (1.6-2.3); Potassium 3.5 mmol/L (3.5-5.1)
[2021-05-07] MEDS ORDERED: POTASSIUM CHLORIDE ER 20 MEQ TAB.ER PO STA (09:51)
[2021-05-07] MEDS ORDERED: MAGNESIUM SULFATE-D5W PMX 1 GM in DEXTROSE/WATER 1 100ML.BAG IVPB ONE (09:51)
[2021-05-07 11:34] LABS: Appearance,Urine Clear (Clear); Bilirubin,Urine Negative (Negative); Blood,Urine Negative (Negative); Color,Urine Yellow; Glucose,Urine (UA) Negative (Negative); Ketones,Urine Negative (Negative); Leukocyte Esterase,Urine Negative (Negative); Nitrite,Urine Negative (Negative); PH, Urine 6.5 (5.0-8.0); Protein,Urine Trace (Negative); Specific Gravity,Urine 1.019 (1.001-1.035); Urobilinogen,Urine <2.0 mg/dL (<2.0)
--- NOTE | 2021-05-07 11:48 | P.PN ---
Subjective This is a pleasant 55 years old male who presents with left-sided chest pain. Patient states that he has chest pain of one-day duration, associated with little dyspnea, on the left side of the chest radiating to the left arm about 6/10 in severity felt like sharp. No associated dyspnea, but no phlegm. Currently he denies any itching or rash which he had in the emergency room. He denies any GI or urinary symptoms. He has no headache or dizziness. He denies smoking, illicit drugs he drinks about a case of /12.. He denies hopelessness/helplessness, no signs or symptoms of depression. He denies suicidal ideation In reviewing the records from [facility] he was admitted to the hospital emergency room on 05/01 where he was brought in by police stating that he was chest pain and tach to much. It stabilized from emergency room and discharged with recommendation for close follow-up Also he was at [facility], followed by [place] [employer] [facility] [place] [facility] At that time he informed he was trying to sleep outside [place] in the emergency room Pt has generalized rash/hives on truncal region and chest. Pt has facial edema. Per EC RN, the pt had this rash in the EC and was given Benadryl and Solumedrol. Pt denies shortness of breath at this time. No known allergies. Because of this as she was placed on nonrebreather for a short while, he is given Solu-Medrol, Benadryl. Currently he is breathing quietly and saturating 98% on 4 L oxygen. While he was in the emergency room was noticed to develop atrial fibrillation's with RVR. With heart rate was as high as 1:30 on EKG. Chest x-ray, possible new right perihilar infiltrate compared to old exam. No heart failure Currently vital signs stable, is afebrile. Heart rate 68 months reason rate is 18. Blood pressure 122/67. Labs showing WBC of 6.7K, hemoglobin of 14.1. Platelet is normal. INR and BMP, liver enzymes were unremarkable. Resume was low at 1.3. Serial troponin were negative with less than 0.012. Lipase is normal at 98 On admission he was started on heparin drip, Valium 5 mg every 6 hours, D5 half- normal saline at 100 mL per hour, CIWA protocol, Solu-Medrol 125 mg 1. Thiamine 05/06/2021 Patient clinically is doing better, no chest pain or dyspnea. 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 Heart rate is currently controlled with metoprolol 25 mg daily His CIWA score is 45, drink was 2 days ago, we will monitor him for 24 hours if he remains stable then possible discharge in 24-48 hours Patient told me he wants to quit alcohol and he is interested of going to [place], addiction social worker when he went to see the patient told him he change his mind and he does not want to go to [place] anymore Chest x-ray today showing improved atelectasis 9821 05/07/21 Patient today he denies any symptoms, no chest pain or dyspnea or coughing. No diarrhea or vomiting or abdominal pain. Dysuria or urgency. No rash. Last night he had some headache and resolved with Tylenol. Morphine he denies any headache or numbness or weakness. No blurred vision or slurred speech. Vital signs stable however he spiked low-grade fever yesterday at 100.3. His CIWA score is 2-3 cm yesterday He remains on CIWA protocol and c his volume from 2 down to 1 mg 3 times a day, metoprolol 25 daily and aspirin 81 mg added today by lathe spotter. Because of fever we ask for PT urine analysis. Chest x-ray from yesterday showing improvement. We'll consult infectious disease team Objective - Vital Signs Vital signs: Vital Signs Temp 97.6 F 05/07/21 08:15 Pulse 83 05/07/21 08:15 Resp 18 05/07/21 08:15 BP 103/73 05/07/21 08:15 Pulse Ox 96 05/07/21 08:15 Intake & Output 05/06/21 05/07/21 05/07/21 18:59 06:59 18:59 Intake Total 437.338 180 Output Total 3650 1125 350 Balance -3212.662 -1125 -170 Weight 110 kg Intake: Intake, IV Titration 197.338 Amount Heparin Sod,Pork in 0.45% 197.338 NaCl 25,000 unit In 0.45 % NaCl 1 250ml.bag @ 9.18 UNITS/KG/HR 9.994 mls/hr IV .Q24H [facility] Rx#: [id number] Oral 240 180 Output: Urine 3650 1125 350 Other: Voiding Method Urinal Urinal # Voids 1 # Bowel Movements 1 - Exam GENERAL: The patient is alert and oriented x3, not in any acute distress. Well developed, well nourished. HEENT: Pupils are round and equally reacting to light. EOMI. No scleral icterus. No conjunctival pallor. Normocephalic, atraumatic. No pharyngeal erythema. No thyromegaly. CARDIOVASCULAR: S1 and S2 present. No murmurs, rubs, or gallops. PULMONARY: Chest is clear to auscultation, no wheezing or crackles. ABDOMEN: Soft, nontender, nondistended, normoactive bowel sounds. No palpable organomegaly. MUSCULOSKELETAL: No joint swelling or deformity. EXTREMITIES: No cyanosis, clubbing, or pedal edema. NEUROLOGICAL: Gross neurological examination did not reveal any focal deficits. SKIN: No rashes. no petechiae. - Labs CBC & Chem 7: 05/06/21 07:36 05/07/21 07:06 Labs: Abnormal Lab Results - Last 24 Hours (Table) 05/07/21 Range/Units 10:34 Urine Protein Trace H (Negative) Assessment and Plan Assessment: Assessment and Plan Ch fever of unknown origin est pain, resolved, lathe spotter Cleared The patient for discharge New onset atrial fibrillation with RVR, rate controlled with metoprolol. No n eed for anticoagulation. Patient is started on aspirin Alcohol intoxication on admission and alcohol withdrawal Right lung atelectasis, improved Generalized rash on the trunk and chest Homeless state Alcohol level is elevated at 76 Plan: This is a pleasant 55 years old male who presents with chest pain and alcohol intoxication Had low-grade fever, consult infectious disease, check urinalysis Hall Clerk. follow-up with Dr. Richmond as an outpatient Valium was lowered from 2 mg down to 1 mg 3 times a day Continue with CIWA protocol and thiamine Labs and medication were reviewed.. Continue same treatment. Continue with symptomatic treatment. Resume home medication. Monitor lytes and vitals. DVT and GI prophylaxis. Further recommendations depends on the clinical course of the patient DVT prophylaxis: heparin GI Prophylaxis: Pepcid
--- NOTE | 2021-05-07 11:50 | P.PN ---
Subjective This is a pleasant 55-year-old male past medical history significant for heavy daily alcohol intake. He is seen and examined resting comfortably lying flat in bed in no acute distress. He denies any further symptoms of chest discomfort. He is maintaining sinus mechanism on telemetry tracings. Blood pressure 154/89 heart rate 71 afebrile maintaining oxygen saturation on room air. Laboratory data reviewed, magnesium 1.6, potassium 3.6, WBC 8, hemoglobin 12.9 and platelets 183. Currently maintained on IV heparin infusion. Chest x- ray this morning reveals resolution of previously noted right atelectasis. No acute cardiopulmonary process. 05/07/2021 Pt seen and examined resting comfortably in bed in no acute distress. He is currently going through alcohol withdrawal symptoms on CIWA scale. He has plans to go to [place] for rehabilitation upon discharge for assistance with alcohol cessation. Echocardiogram obtained revealed impaired LV systolic function with EF 40-45% with basal lateral, basal posterior, mid lateral and mid posterior LV wall motion hypokinesia, moderately dilated left atrium and mild tricuspid regurgitation. GENERAL: Well-appearing, well-nourished and in no acute distress. NECK: Supple without JVD or thyromegaly. LUNGS: Breath sounds clear to auscultation bilaterally. Respiration equal and u nlabored. No wheezes, rales or rhonchi. HEART: Regular rate and rhythm with systolic ejection murmur at the base, no rubs or gallops. S1 and S2 heard. EXTREMITIES: Normal range of motion, no edema. No clubbing or cyanosis. Peripheral pulses intact. ASSESSMENT Paroxysmal atrial fibrillation, currently maintaining sinus rhythm Cardiomyopathy, likely ischemic Acute systolic heart failure, clinically euvolemic History of daily excessive alcohol intake Obesity, BMI 33 PLAN Chads-vasc score now 1 with new onset LV dysfunction. Still recommend no anti- coagulation with a score of 1 and his history of excessive alcohol intake. Add aspirin 81 mg daily. He is asymptomatic and did not have an ischemic event on this admission, therefore recommend outpatient follow up with Dr. Durand for further testing regarding segmental wall motion abnormalities. Follow up with Dr. Durand upon discharge. Nurse Practitioner note has been reviewed, I agree with a documented findings and plan of care. Patient was seen and examined. Objective - Vital Signs Vital signs: Vital Signs Temp 97.6 F 05/07/21 08:15 Pulse 83 05/07/21 08:15 Resp 18 09/08/21 08:15 BP 103/73 05/07/21 08:15 Pulse Ox 96 05/07/21 08:15 Intake & Output 05/06/21 05/07/21 05/07/21 18:59 06:59 18:59 Intake Total 437.338 180 Output Total 3650 1125 350 Balance -3212.662 -1125 -170 Weight 110 kg Intake: Intake, IV Titration 197.338 Amount Heparin Sod,Pork in 0.45% 197.338 NaCl 25,000 unit In 0.45 % NaCl 1 250ml.bag @ 9.18 UNITS/KG/HR 9.994 mls/hr IV .Q24H [facility] Rx#: [id number] Oral 240 180 Output: Urine 3650 1125 350 Other: Voiding Method Urinal Urinal # Voids 1 # Bowel Movements 1 - Labs CBC & Chem 7: 05/06/21 07:36 05/07/21 07:06 Labs: Abnormal Lab Results - Last 24 Hours (Table) 05/07/21 Range/Units 10:34 Urine Protein Trace H (Negative)
--- NOTE | 2021-05-07 12:47 | US ---
EXAMINATION TYPE: US venous doppler duplex LE DATE OF EXAM: 05/07/2021 12:27 PM COMPARISON: NONE CLINICAL HISTORY: possible leg swelling and fever . Patient states no pain or swelling Exam done portable. SIDE PERFORMED: Bilateral TECHNIQUE: The lower extremity deep venous system is examined utilizing real time linear array sonog broderick with graded compression, doppler sonography and color-flow sonography. VESSELS IMAGED: Common Femoral Vein Deep Femoral Vein Greater Saphenous Vein * Femoral Vein Popliteal Vein Small Saphenous Vein * Proximal Calf Veins (* superficial vessels) Right Leg: Appears negative for DVT Left Leg: Appears negative for DVT IMPRESSION: No evidence for DVT
--- NOTE | 2021-05-07 22:28 | P.CONS ---
History of Present Illness - Reason for Consult Consult date: 05/07/21 Fever Requesting physician: Jose Go - Chief Complaint chest pain x 1 day - History of Present Illness History of present illness : Patient is 55-year-old male presenting to the ER on 05/04/2021 for evaluation of left-sided chest pain of 1 day duration was associated shortness of breath patient was describing his pain to be sharp almost 7 cm in no radiation denies having any nausea no vomiting did not have any significant cough or sputum production patient was attributing his symptoms to drinking heavily patient on presentation to the hospital was afebrile he did have a low-grade fever 100.2 degree of 100 yesterday and no fever since then patient is currently breathing comfortably on room air patient did have a normal white count mild lymphopenia kidney function normal liver exams are normal urine is negative patient did have a chest x-ray on admission and the repeat one was done on 05 06 shows resolution of previous right-sided atelectasis patient did have a lower extremity Doppler negative for DVT ID was consulted because of his low-grade fever overall patient is feeling better patient denies having any headache or URI symptom denies any further chest pain shortness with a cough but denies any nausea no vomiting no abdominal pain no diarrhea no urinary symptoms Review of system: CONSTITUTIONAL: Positive for weakness however denies high-grade fever. EYES: No complaint. ENT: No complaint. RESPIRATORY: No complaint. CARDIOVASCULAR: As per history of present illness GENITOURINARY: No complaint. GASTROINTESTINAL: No complaint. MUSCULOSKELETAL: No complaint. INTEGUMENTARY: No complaint. PSYCHOLOGIC: No complaint. ENDOCRINE: No complaint. NEUROLOGIC: No complaint. Past medical history : Reviewed, documented below Past surgical history : Reviewed, documented below Social history: Reviewed, documented below Medications: Reviewed, as documented below EXAMINATION: Vital sigans= Reviewed and documented below GENERAL DESCRIPTION: Middle-aged male lying in bed, no distress. No tachypnea or accessory muscle of respiration use. HEENT: Shows Pallor , no scleral icterus. Oral mucous membrane is dry. NECK: Trachea central, no thyromegaly. LUNGS: Unlabored breathing. Clear to auscultation anteriorly. No wheeze or crackle. HEART: S1, S2, regular rate and rhythm. ABDOMEN: Soft, no tenderness , guarding or rigidity EXTREMITIES: No edema of feet. SKIN: No rash, no masses palpable. NEUROLOGICAL: The patient is awake, alert, oriented x3, mood and affect normal. LABS AND RADIOLOGY: Reviewed results see below Assessment : Patient with low-grade fever 100.3x1 yesterday this only fever he has had during this admission in this patient currently with no localizing signs or symptoms of infection initial work-up has been negative with negative UA chest x-ray did not show any pneumonia patient abdominal soft on clinical exam ination and no evidence of any cellulitis with normal white count clinically doubt dealing with any infectious etiology Plan: 1-we will repeat CBC CRP procalcitonin with the morning lab 2-no need for systemic antibiotic therapy 3-advised incentive spirometry We will follow on clinical condition and cultures to further adjust medication if needed Thank you for this consultation we will follow the patient along with you Past Medical History Past Medical History: No Reported History Additional Past Medical History / Comment(s): closed head injury History of Any Multi-Drug Resistant Organisms: None Reported Past Surgical History: Unable to Obtain Past Psychological History: No Psychological Hx Reported Smoking Status: Never smoker Past Alcohol Use History: Daily, Heavy Past Drug Use History: None Reported Medications and Allergies Home Medications Medication Instructions Recorded Confirmed Type No Known Home Medications 10/28/17 05/04/21 History Allergies Allergy/AdvReac Type Severity Reaction Status Date / Time No Known Allergies Allergy Verified 05/04/21 22:33 Physical Exam Vitals: Vital Signs Temp Pulse Resp BP Pulse Ox 05/07/21 14:00 99.3 F 88 18 162/89 98 05/07/21 08:15 97.6 F 83 18 103/73 96 05/07/21 02:00 79 18 144/86 96 05/06/21 20:00 97.5 F L 82 18 110/74 97 Intake and Output 05/07/21 05/07/21 05/07/21 06:59 14:59 22:59 Intake Total 460 Output Total 500 475 Balance -500 -15 Intake: IV 20 Invasive Line 2 10 Invasive Line 3 10 Oral 440 Output: Urine 500 475 Other: Weight 110 kg Results CBC & Chem 7: 05/06/21 07:36 05/07/21 07:06 Labs: Abnormal Lab Results - Last 24 Hours (Table) 05/07/21 Range/Units 10:34 Urine Protein Trace H (Negative)
[2021-05-08] MEDS: diazePAM 2 MG TAB PO SCH (07:43)
[2021-05-08] MEDS: METOPROLOL SUCCINATE (ER) 25 MG TAB.ER.24H PO SCH (07:43)
[2021-05-08] MEDS: ASPIRIN 81 MG PO SCH (07:44)
[2021-05-08] MEDS: FAMOTIDINE 20 MG/2 ML VIAL IV SCH (07:44)
[2021-05-08] MEDS: THIAMINE 100 MG TAB PO SCH ×2 (07:44→17:30)
[2021-05-08] MEDS: DEXTROSE 5%-0.45% NACL 1,000 ML IV SCH ×2 (07:46→07:47)
[2021-05-08 08:39] LABS: Basophils % (A) 1 %; Eosinophils # (A) 0.1 k/uL (0-0.7); Eosinophils % (A) 3 %; HCT 43.5 % (39.0-53.0); HGB 14.4 gm/dL (13.0-17.5); Lymphocytes % (A) 21 %; MCH 33.5 pg (25.0-35.0); MCHC 33.2 g/dL (31.0-37.0); MCV 100.8 fL (80.0-100.0); Macrocytosis Slight; Mean Platelet Volume 7.2; Monocytes # (A) 0.3 k/uL (0-1.0); Monocytes % (A) 7 %; Neutrophils # (A) 3.2 k/uL (1.3-7.7); Neutrophils % (A) 67 %; Platelet Count 200 k/uL (150-450); RBC 4.31 m/uL (4.30-5.90); RDW 15.1 % (11.5-15.5); WBC 4.8 k/uL (3.8-10.6)
[2021-05-08 08:54] LABS: ALT 23 U/L (4-49); AST 23 U/L (17-59); African American GFR (CKD) >90 (>60 ml/min/1.73 sqM); Albumin 3.8 g/dL (3.5-5.0); Alkaline Phosphatase 70 U/L (38-126); Anion Gap 11 mmol/L; Blood Urea Nitrogen 18 mg/dL (9-20); Calcium 9.8 mg/dL (8.4-10.2); Carbon Dioxide 25 mmol/L (22-30); Chloride 101 mmol/L (98-107); Glucose 129 mg/dL (74-99); Non-African American GFR(CKD) >90 (>60 ml/min/1.73 sqM); Potassium 4.2 mmol/L (3.5-5.1); Sodium 137 mmol/L (137-145); Total Bilirubin 0.5 mg/dL (0.2-1.3); Total Protein 6.8 g/dL (6.3-8.2)
--- NOTE | 2021-05-08 09:04 | P.PN ---
Subjective This is a pleasant 55-year-old male past medical history significant for heavy daily alcohol intake. He is seen and examined resting comfortably lying flat in bed in no acute distress. He denies any further symptoms of chest discomfort. He is maintaining sinus mechanism on telemetry tracings. Blood pressure 154/89 heart rate 71 afebrile maintaining oxygen saturation on room air. Laboratory data reviewed, magnesium 1.6, potassium 3.6, WBC 8, hemoglobin 12.9 and platelets 183. Currently maintained on IV heparin infusion. Chest x- ray this morning reveals resolution of previously noted right atelectasis. No acute cardiopulmonary process. 05/08/2021 Pt seen and examined laying flat resting comfortably in bed in no acute dist ress. He denies chest pain, shortness of breath, dizziness or palpitations. Blood pressure 138/87 heart rate 77 afebrile and maintaining oxygen saturation on room air. GENERAL: Well-appearing, well-nourished and in no acute distress. NECK: Supple without JVD or thyromegaly. LUNGS: Breath sounds clear to auscultation bilaterally. Respiration equal and unlabored. No wheezes, rales or rhonchi. HEART: Regular rate and rhythm with systolic ejection murmur at the base, no rubs or gallops. S1 and S2 heard. EXTREMITIES: Normal range of motion, no edema. No clubbing or cyanosis. Peripheral pulses intact. ASSESSMENT Paroxysmal atrial fibrillation, currently maintaining sinus rhythm Cardiomyopathy, likely ischemic. EF 40-45% with segmental wall motion abnormalities. Acute systolic heart failure, clinically euvolemic History of daily excessive alcohol intake Obesity, BMI 33 PLAN Add lisinopril 5 mg daily. Continue toprol as previously ordered. Chads-vasc score now 1 with new onset LV dysfunction. Still recommend no anti- coagulation with a score of 1 and his history of excessive alcohol intake. He is asymptomatic and did not have an ischemic event on this admission, therefore recommend outpatient follow up with Dr. Durand for further testing regarding segmental wall motion abnormalities. Clinically stable from a cardiac perspective, we will follow along as needed. Follow up with Dr. Durand upon discharge. Nurse Practitioner note has been reviewed, I agree with a documented findings and plan of care. Patient was seen and examined. Objective - Vital Signs Vital signs: Vital Signs Temp 99.2 F 05/08/21 07:35 Pulse 77 05/08/21 07:35 Resp 18 05/08/21 07:35 BP 138/87 05/08/21 07:35 Pulse Ox 96 05/08/21 07:35 Intake & Output 05/07/21 05/08/21 05/08/21 18:59 06:59 18:59 Intake Total 720 10 370 Output Total 725 1700 Balance -5 -1690 370 Weight 102.1 kg Intake: IV 20 10 10 Invasive Line 2 10 Invasive Line 3 10 10 10 Oral 700 360 Output: Urine 725 1700 Other: Voiding Method Urinal # Voids 2 - Labs CBC & Chem 7: 05/08/21 07:41 05/07/21 07:06 Labs: Abnormal Lab Results - Last 24 Hours (Table) 05/07/21 Range/Units 10:34 Urine Protein Trace H (Negative)
[2021-05-08 09:18] LABS: C Reactive Protein 6.5 mg/dL (<1.0)
[2021-05-08] MEDS ORDERED: amLODIPine 2.5 MG TAB PO STA (11:56)
[2021-05-08] MEDS: lisinopriL 5 MG TAB PO SCH (12:16)
--- NOTE | 2021-05-08 12:18 | P.PN ---
Subjective This is a pleasant 55 years old male who presents with left-sided chest pain. Patient states that he has chest pain of one-day duration, associated with little dyspnea, on the left side of the chest radiating to the left arm about 6/10 in severity felt like sharp. No associated dyspnea, but no phlegm. Currently he denies any itching or rash which he had in the emergency room. He denies any GI or urinary symptoms. He has no headache or dizziness. He denies smoking, illicit drugs he drinks about a case of /12.. He denies hopelessness/helplessness, no signs or symptoms of depression. He denies suicidal ideation In reviewing the records from [facility] he was admitted to the hospital emergency room on 05/01 where he was brought in by police stating that he was chest pain and tach to much. It stabilized from emergency room and discharged with recommendation for close follow-up Also he was at [facility] in [facility], followed by [place] [employer] [facility] [place] [facility] At that time he informed he was trying to sleep outside [place] in the emergency room Pt has generalized rash/hives on truncal region and chest. Pt has facial edema. Per EC RN, the pt had this rash in the EC and was given Benadryl and Solumedrol. Pt denies shortness of breath at this time. No known allergies. Because of this as she was placed on nonrebreather for a short while, he is given Solu-Medrol, Benadryl. Currently he is breathing quietly and saturating 98% on 4 L oxygen. While he was in the emergency room was noticed to develop atrial fibrillation's with RVR. With heart rate was as high as 1:30 on EKG. Chest x-ray, possible new right perihilar infiltrate compared to old exam. No heart failure Currently vital signs stable, is afebrile. Heart rate 68 months reason rate is 18. Blood pressure 122/67. Labs showing WBC of 6.7K, hemoglobin of 14.1. Platelet is normal. INR and BMP, liver enzymes were unremarkable. Resume was low at 1.3. Serial troponin were negative with less than 0.012. Lipase is normal at 98 On admission he was started on heparin drip, Valium 5 mg every 6 hours, D5 half- normal saline at 100 mL per hour, CIWA protocol, Solu-Medrol 125 mg 1. Thiamine 05/06/2021 Patient clinically is doing better, no chest pain or dyspnea. 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 No diarrhea or vomiting or abdominal pain. Dysuria or urgency. No rash. Last night he had some headache and resolved with Tylenol. Morphine he denies any headache or numbness or weakness. No blurred vision or slurred speech. Vital signs stable however he spiked low-grade fever yesterday at 100.3. 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 Because of fever we ask for PT urine analysis. Chest x-ray from yesterday showing improvement. We'll consult infectious disease team 05/08/2021 Patient with no symptoms. No chest pain or dyspnea. No diarrhea or vomiting or abdominal pain. No urinary complaints. No headache or weakness Vitals are stable, labs are normal. No leukocytosis. C-reactive protein is mildly elevated. proCalcitonin is a still pending He is not on antibiotics and volume lowered to 1 mg at bedtime. Continue with metoprolol 25 mg daily, cardiology cleared the patient for discharge Possible discharge in 24-48 hours if he keeps improvement and clinically stable Objective - Vital Signs Vital signs: Vital Signs Temp 99.2 F 05/08/21 07:35 Pulse 77 05/08/21 07:35 Resp 18 05/08/21 07:35 BP 138/87 05/08/21 07:35 Pulse Ox 96 05/08/21 07:35 Intake & Output 0905/08/21 05/08/21 18:59 06:59 18:59 Intake Total 720 10 630 Output Total 725 1700 Balance -5 -1690 630 Weight 102.1 kg Intake: IV 20 10 10 Invasive Line 2 10 Invasive Line 3 10 10 10 Oral 700 620 Output: Urine 725 1700 Other: Voiding Method Urinal # Voids 2 - Exam GENERAL: The patient is alert and oriented x3, not in any acute distress. Well developed, well nourished. HEENT: Pupils are round and equally reacting to light. EOMI. No scleral icterus. No conjunctival pallor. Normocephalic, atraumatic. No pharyngeal erythema. No thyromegaly. CARDIOVASCULAR: S1 and S2 present. No murmurs, rubs, or gallops. PULMONARY: Chest is clear to auscultation, no wheezing or crackles. ABDOMEN: Soft, nontender, nondistended, normoactive bowel sounds. No palpable organomegaly. MUSCULOSKELETAL: No joint swelling or deformity. EXTREMITIES: No cyanosis, clubbing, or pedal edema. NEUROLOGICAL: Gross neurological examination did not reveal any focal deficits. SKIN: No rashes. no petechiae. 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 No need for anticoagulation. Patient is started on aspirin Alcohol intoxication on admission and alcohol withdrawal Right lung atelectasis, improved Generalized rash on the trunk and chest Homeless state Alcohol level is elevated at 76 Plan: This is a pleasant 55 years old male who presents with chest pain and alcohol intoxication Had low-grade fever, consult infectious disease, check urinalysis [employer]. follow-up with Dr. Richmond as an outpatient Valium was lowered from 2 mg down to 1 mg 3 times a day Continue with CIWA protocol and thiamine Labs and medication were reviewed.. Continue same treatment. Continue with symptomatic treatment. Resume home medication. Monitor lytes and vitals. DVT and GI prophylaxis. Further recommendations depends on the clinical course of the patient DVT prophylaxis: heparin GI Prophylaxis: Pepcid
--- NOTE | 2021-05-08 14:10 | PN ---
PROGRESS NOTE DATE OF SERVICE: 05/08/2021 REASON FOR FOLLOWUP: Fever. INTERVAL HISTORY: The patient is afebrile. The patient is breathing comfortably on room air. Denies having any chest pain or shortness of breath. Minimal cough. No vomiting, abdominal pain or diarrhea. EXAMINATION: Blood pressure pulse of 81, temperature 99.8, 98% on room air. General description is a middle-aged male lying in bed in no distress. Respiratory system: Unlabored breathing. Decreased breath sounds in the bases. No wheeze. Heart S1, S2. Regular rate and rhythm. Abdomen soft, no tenderness. LABS: Hemoglobin 14.4, white count 4.2, BUN of 18, creatinine 0.79. CRP 6.51. DIAGNOSTIC IMPRESSION AND PLAN: Patient with low-grade fever. No obvious focus of infection. White count is normal. Culture negative. May finish a short course of oral Ceftin on discharge and close outpatient followup. Continue supportive care. MMODL / IJN: [id number] /
[2021-05-08] MEDS ORDERED: diazePAM 2 MG TAB PO SCH (21:00)
[2021-05-08] MEDS: ACETAMINOPHEN TAB 325 MG TAB PO PRN (23:28)
[2021-05-09] MEDS: THIAMINE 100 MG TAB PO SCH (06:39)
[2021-05-09 07:48] VITALS: TEMP 98.6
[2021-05-09] MEDS: ASPIRIN 81 MG PO SCH (10:35)
[2021-05-09] MEDS: METOPROLOL SUCCINATE (ER) 25 MG TAB.ER.24H PO SCH (10:35)
[2021-05-09] MEDS: FAMOTIDINE 20 MG/2 ML VIAL IV SCH (10:36)
[2021-05-09] MEDS: lisinopriL 5 MG TAB PO SCH (10:36)
[2021-05-09 12:25] VITALS: BP 144/82; PULSE 77; RESP 18
--- NOTE | 2021-05-09 13:49 | PN ---
PROGRESS NOTE DATE OF SERVICE: 05/09/2021. REASON FOR FOLLOWUP: Fever. INTERVAL HISTORY: The patient is currently afebrile. The patient is breathing comfortably. The patient denies having any chest pain, shortness of breath. Occasional cough. No vomiting. No abdominal pain or diarrhea. PHYSICAL EXAMINATION: Blood pressure 144/82 with pulse of 77, temperature 98.3. He is 100% on room air. GENERAL DESCRIPTION: General description is a middle-aged male lying in bed in no distress. RESPIRATORY SYSTEM: Unlabored breathing. Decreased breath sounds at the bases. No wheeze. HEART: S1, S2. Regular rate and rhythm. ABDOMEN: Soft. No tenderness. LABS: Hemoglobin is 14, white count 4.8. Creatinine 0.74. DIAGNOSTIC IMPRESSION AND PLAN: Patient with a low-grade fever, possible atelectasis. Clinically not behaving as pneumonia. White count is normal. Culture negative. Blood culture is negative. Antibiotic can be safely discontinued. Continue with supportive care. MMODL / IJN: [id number] /
[2021-05-09 14:08] VITALS: BMI 32.2
--- NOTE | 2021-05-09 23:07 | P.DS ---
Providers Date of admission: 05/04/21 22:58 Attending physician: Mathew Tovar Consults: 05/05/21 08:48 Consult Physician Routine Consulting Provider: Venkat Durand Consult Reason/Comments: new onset afib Do you want consulting provider notified?: Yes 05/07/21 10:50 Consult Physician Urgent Consulting Provider: Chastity Rod Consult Reason/Comments: fever Do you want consulting provider notified?: Already Contacted Primary care physician: Stated None Hospital Course: Diagnoses: fever of unknown origin , respiratory antibiotic and discharged on short course of oral antibiotics Chest pain, resolved, demand planning analyst Cleared The patient for discharge New onset atrial fibrillation with RVR, rate controlled with metoprolol. No need for anticoagulation. Patient is started on aspirin Alcohol intoxication on admission and alcohol withdrawal. Patient preferred to [place] upon discharge Right lung atelectasis, improved Generalized rash on the trunk and chest. Resolved Homeless state Alcohol level is elevated at 76 on admission with alcohol abuse Hospital course: This is a pleasant 55 years old male who presents with left-sided chest pain. His chest pain resolved, patient able with by demand planning analyst. Also his hospital course has been complicated with A. fib and RVR secondary to alcohol abuse. His rate was controlled with metoprolol 25 mg, however no need for anticoagulation as he is of low chads score and he stated he was prescribed aspirin by demand planning analyst, risk of bleeding and benefits are explained for the patient and he agrees to continue with aspirin His alcohol withdrawal has been treated with CIWA score as well as volume, is a scar improved and on the day of discharge his tapered down to 1 mg volume at bedtime which is stopped upon discharge. No active signs and symptoms of withdrawal. His CIWA score was 0-1 throughout the day Also patient developed low-grade fever 3 days ago at 100.3 and Without antibiotics and yesterday he had another fever of 99.7. Extensive workup including several chest x-ray, urinalysis were unremarkable. No rash. Doppler of the lower extremity is negative for DVT. Patient remains asymptomatic although he is monitored more than 48 hours. He was evaluated by infectious disease team, he responded to therapeutic trial of ceftriaxone and he will be discharged on short course of oral Ceftin recommended by infectious disease team with recommendation for close outpatient follow-up and he agrees slab worker helped him to discharge to rehab to help him with alcohol withdrawal with taxi provided for him by the hospital for transportation, please refer to neonatal social worker note for more details Over the last 2-3 days including the day of discharge patient denies any symptoms stating his back to his normal self. Denies chest pain or dyspnea. no Abdominal pain. No change in urine or bowel habits. No more fever. Patient was cleared for discharge by demand planning analyst and infectious disease team Problems and management plan were discussed with the patient and he verbalized understanding and acceptance Patient was found stable and can be discharged home however he needs follow-up as an outpatient. Patient was instructed to follow up with PCP within one week and patient agrees. Patient was instructed to call his insurance provider to find any of my PCP and call and make appointment in 1 week and he agrees, also Dr. Nevarez is suggested for him and contact information provided to call and make appointment and he agrees Also patient was instructed to follow up with Dr. Durand as an outpatient and he agrees to call and make appointment hysical exam Gen: patient is a AAOx3, no distress CVS: S1-S2, RRR, no murmur Lungs: B/L CTA, no wheezing Abdomen: soft, no distention, no tenderness, positive bowel sounds Extremity: no leg edema or induration Time spent more than 35 minutes Patient Condition at Discharge: Serious Plan - Discharge Summary Discharge Rx Participant: No New Discharge Prescriptions: New Aspirin 81 mg PO DAILY #30 Thiamine [Vitamin B-1] 100 mg PO BID-W/MEALS #30 tab Cefuroxime Axetil [Ceftin] 500 mg PO BID 5 Days #10 tab Metoprolol Succinate (ER) [Toprol XL] 25 mg PO DAILY #60 tablet amLODIPine [Norvasc] 5 mg PO ONCE #30 tab Discharge Medication List Aspirin 81 mg PO DAILY #30 05/08/21 [Rx] Metoprolol Succinate (ER) [Toprol XL] 25 mg PO DAILY #60 tablet 05/08/21 [Rx] Thiamine [Vitamin B-1] 100 mg PO BID-W/MEALS #30 tab 05/08/21 [Rx] amLODIPine [Norvasc] 5 mg PO ONCE #30 tab 05/08/21 [Rx] Cefuroxime Axetil [Ceftin] 500 mg PO BID 5 Days #10 tab 05/09/21 [Rx] Follow up Appointment(s)/Referral(s): Venkat Durand MD [STAFF PHYSICIAN] - 2 Weeks None,Stated [Primary Care Provider] - 1-2 days Chastity Rod MD [STAFF PHYSICIAN] - 1 Week (follow up in 5-7 days) Gaye Nevarez MD [REFERRING] - 1 Week Patient Instructions/Handouts: A-fib (Atrial Fibrillation) (DC), Chest Pain (DC), Heart Healthy Diet (DC), Alcohol Intoxication (DC), Abuse of Alcohol (DC), Acute Rash (DC), Alcohol Withdrawal (DC) Activity/Diet/Wound Care/Special Instructions: Discharge to [facility] today at 1:00PM [id number] [place] [address] RN to call Taxi for patient. Heart healthy diet Activity is restricted till you see your doctor please contact your health insurance provider to find out a nearby primary care physician , please call to make appointment in one week Discharge/Stand Alone Forms: AA Meetings [place], Who Do I Call?, Community Resources, Outpatient Counseling Discharge Disposition: DC/TRNS TO INPATIENT REHAB FAC
== END 2021-05-09 14:17 | DRG 308 ==
LOC: EC 20:50 → 3SCARD 22:58
PROVIDERS: ADMIT Hospitalist; ATTEND Hospitalist
DX: I48.0 Paroxysmal atrial fibrillation (principal); I50.21 Acute systolic (congestive) heart failure; F10.231 Alcohol dependence with withdrawal delirium; F10.239 Alcohol dependence with withdrawal, unspecified; I11.0 Hypertensive heart disease with heart failure; Y90.3 Blood alcohol level of 60-79 mg/100 ml; Z59.0 Homelessness; Z68.33 Body mass index [BMI] 33.0-33.9, adult; Z79.82 Long term (current) use of aspirin; Z79.899 Other long term (current) drug therapy; Z87.891 Personal history of nicotine dependence; E66.9 Obesity, unspecified; I25.5 Ischemic cardiomyopathy; R21 Rash and other nonspecific skin eruption; F10.229 Alcohol dependence with intoxication, unspecified
CPT/HCPCS: 36415; 71045; 71046; 80053; 80320; 81003; 82550; 83690; 83735; 84100; 84132; 84145; 84484; 85025; 85610; 85730; 86140; 93005; 93306; 93970; 99291

== ENCOUNTER 2022-03-22 08:51 | Inpatient (IN) | payer OTHER ==
[2022-03-22] MEDS ORDERED: SODIUM CHLORIDE 0.9% 1,000 ML IV STA (08:53)
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
[2022-03-22 09:16] LABS: Basophils % (A) 1 %; Eosinophils # (A) 0.1 k/uL (0-0.7); Eosinophils % (A) 1 %; HCT 39.4 % (39.0-53.0); HGB 12.7 gm/dL (13.0-17.5); Lymphocytes # (A) 1.2 k/uL (1.0-4.8); Lymphocytes % (A) 28 %; MCH 32.1 pg (25.0-35.0); MCHC 32.1 g/dL (31.0-37.0); MCV 99.9 fL (80.0-100.0); Macrocytosis Slight; Mean Platelet Volume 7.4; Monocytes # (A) 0.4 k/uL (0-1.0); Monocytes % (A) 10 %; Neutrophils # (A) 2.4 k/uL (1.3-7.7); Neutrophils % (A) 57 %; Platelet Count 235 k/uL (150-450); RBC 3.95 m/uL (4.30-5.90); RDW 15.6 % (11.5-15.5); WBC 4.2 k/uL (3.8-10.6)
[2022-03-22 09:30] LABS: ALT 102 U/L (4-49); AST 121 U/L (17-59); African American GFR (CKD) >90 (>60 ml/min/1.73 sqM); Albumin 4.3 g/dL (3.5-5.0); Alkaline Phosphatase 108 U/L (38-126); Anion Gap 11 mmol/L; Blood Urea Nitrogen 16 mg/dL (9-20); Calcium 8.7 mg/dL (8.4-10.2); Carbon Dioxide 26 mmol/L (22-30); Chloride 105 mmol/L (98-107); Glucose 104 mg/dL (74-99); Lipase 168 U/L (23-300); Magnesium 1.4 mg/dL (1.6-2.3); Non-African American GFR(CKD) >90 (>60 ml/min/1.73 sqM); Potassium 3.6 mmol/L (3.5-5.1); Sodium 142 mmol/L (137-145); Total Bilirubin 0.3 mg/dL (0.2-1.3); Total Protein 7.3 g/dL (6.3-8.2)
[2022-03-22 09:32] LABS: INR 0.9 (<1.2); Partial Thromboplastin Time 25.1 sec (22.0-30.0); Prothrombin Time 10.2 sec (9.0-12.0)
--- NOTE | 2022-03-22 09:38 | XR ---
EXAMINATION TYPE: XR chest 2V DATE OF EXAM: 03/22/2022 9:13 AM COMPARISON: Chest radiographs from 05/06/2021 TECHNIQUE: XR chest 2V Frontal and lateral views of the chest. CLINICAL INDICATION:Male, 56 years old with history of Chest Pain; FINDINGS: Lungs/Pleura: Low lung volumes are present. There is no evidence of pleural effusion, focal consolida tion, or pneumothorax. Pulmonary vascularity: Unremarkable. Heart/mediastinum: Cardiomediastinal silhouette is unremarkable. Musculoskeletal: No acute osseous pathology. IMPRESSION: No acute cardiopulmonary disease/process.
[2022-03-22 09:41] LABS: Alcohol 310 mg/dL
--- NOTE | 2022-03-22 11:05 | CT ---
EXAMINATION TYPE: CT angio chest CT DLP: 477.6 mGycm, Automated exposure control for dose reduction was used. DATE OF EXAM: 03/22/2022 10:25 AM COMPARISON: Chest radiograph from same day. CT chest abdomen pelvis 03/20/2011. CLINICAL INDICATION:Male, 56 years old with history of PE suspected; shortness of breath. TECHNIQUE/CONTRAST: CTA scan of the thorax is performed without and with IV Contrast, patient injected with 100 ml mL of Isovue 370, pulmonary embolism protocol. MIP images are created and reviewed. FINDINGS: Pulmonary Artery: There is no evidence for a filling defect within the pulmonary vasculature to sugge st acute pulmonary embolism. The pulmonary artery is of normal size. Lungs/Pleura: No evidence of focal consolidation, pleural effusion or pneumothorax. Airway: Large airways are patent. Heart: Heart is mildly enlarged for size. Mild coronary artery atherosclerosis. Vasculature: No evidence of aortic aneurysm. Mediastinum: No gross evidence of adenopathy. Musculoskeletal: No acute osseous abnormalities. Multiple left-sided anterior low rib fractures. Mild degeneration changes of the spine. Soft Tissues: Unremarkable. Lower neck: No significant findings. Upper Abdomen: low-attenuation to the liver parenchyma. Stable lymph node in the pancreatic head tab uring up to 12 mm in short axis diameter 10/19/2010. IMPRESSION: 1. No evidence of pulmonary embolism. 2. Mild cardiomegaly. 3. Hepatic steatosis. 4. Small hiatal hernia.
[2022-03-22] MEDS: MAGNESIUM SULFATE-D5W PMX 1 GM in DEXTROSE/WATER 1 100ML.BAG IVPB SCH ×2 (11:26→12:42)
[2022-03-22] MEDS ORDERED: NITROGLYCERIN SL TABS 0.4 MG TAB SUBLINGUAL PRN (13:18)
[2022-03-22] MEDS ORDERED: LORazepam 2 MG/ML INJ IV PRN ×3 (13:21)
[2022-03-22] MEDS ORDERED: THIAMINE 100 MG/ML 2 ML VIAL IM STA (13:21)
--- NOTE | 2022-03-22 14:13 | HP ---
HISTORY AND PHYSICAL HISTORY OF PRESENT ILLNESS: 56-year-old white male came with hypertension, CABG. A couple days ago he drank a beer. He developed some chest pain, came down his left arm. He came to the hospital. EKG showed no acute changes. He was given some aspirin. He had elevated D-dimer. CT scan of the chest shows multiple left anterior rib fractures, nothing else in the lungs. Troponins negative. Previous medications include aspirin, metoprolol, thiamin, amlodipine, Ceftin. ALLERGIES: Negative. REVIEW OF SYMPTOMS: 14 point review of systems otherwise weakness and fatigue due to drinking. EKG sinus rhythm, no ischemia. PAST MEDICAL HISTORY: Chronic alcohol daily. Does not smoke. Denies any trauma to the chest. PHYSICAL EXAMINATION: Well developed, well nourished, no acute distress. He smells of alcohol. Integument has reddening of the face. He smells like alcohol. Cardiovascular S1, S2. LUNGS: Clear. He has got mild tenderness on palpation of his left ribs. Pupils equal, round, reactive to light and accommodation. Neurologic: Cranial nerves intact. Psych: Fair mood and affect. Temp 98.2, pulse 86, respiratory 18-20, blood pressure 130/90, O2 97. IMPRESSION: 1. Atypical chest pain. 2. Alcohol intoxication. 3. Hypomagnesemia. 4. Rib fractures, acute left anterior. No problems with lungs at this point, except for pain. He is sating good on room air. Blood pressure is low high. Continue home medicines. Alcohol withdrawal. Thiamin. Prognosis guarded. MMODL / IJN: [id number] /
[2022-03-22] MEDS ORDERED: LORazepam 1 MG/0.5 ML VIAL IV PRN ×3 (17:06→17:07)
[2022-03-23] MEDS: THIAMINE 100 MG TAB PO SCH ×2 (08:37→16:10)
[2022-03-23] MEDS: METOPROLOL SUCCINATE (ER) 25 MG TAB.ER.24H PO SCH (08:52)
[2022-03-23] MEDS ORDERED: ASPIRIN 325 MG TAB PO SCH (09:00)
[2022-03-23 09:15] LABS: Basophils # (A) 0.02 X 10*3/uL (0.00-0.10); Basophils % (A) 0.5 %; Eosinophils # (A) 0.12 X 10*3/uL (0.04-0.35); Eosinophils % (A) 2.9 %; HCT 38.4 % (39.6-50.0); HGB 12.5 g/dL (13.0-17.0); Immature Grans, Automated 0.2 %; Lymphocytes % (A) 24.2 %; MCH 32.1 pg (27.0-32.0); MCHC 32.6 g/dL (32.0-37.0); MCV 98.5 fL (80.0-97.0); Mean Platelet Volume 9.2 fL (9.5-12.2); Monocytes # (A) 0.56 X 10*3/uL (0.20-1.00); Monocytes % (A) 13.5 %; NRBC Per 100 WBC 0 /100 WBCS (0.0-0.0); Neutrophils # (A) 2.43 X 10*3/uL (1.80-7.70); Neutrophils % (A) 58.7 %; Platelet Count 181 X 10*3/uL (140-440); WBC 4.14 X 10*3/uL (4.50-10.00)
[2022-03-23 09:23] LABS: ALT 69 U/L (10-49); AST 49 U/L (14-35); African American GFR (CKD) 123.1 (60.0-200.0); Alkaline Phosphatase 71 U/L (41-126); BUN/Creat Ratio 16.43 Ratio (12.00-20.00); Blood Urea Nitrogen 11.5 mg/dL (9.0-27.0); Calcium 8.7 mg/dL (8.7-10.3); Carbon Dioxide 26.5 mmol/L (20.0-27.5); Chloride 101 mmol/L (96-109); Chol/HDL Ratio 3.21 Ratio; Globulin 2.5 g/dL (1.6-3.3); Glucose 97 mg/dL (70-110); LDL Cholesterol,Calculated 109.3 mg/dL (0.0-131.0); Magnesium 1.6 mg/dL (1.5-2.4); Non-African American GFR(CKD) 106.2 (60.0-200.0); Potassium 3.6 mmol/L (3.5-5.5); Sodium 139 mmol/L (135-145); Total Protein 6.5 g/dL (6.2-8.2)
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
[2022-03-24] MEDS: METOPROLOL SUCCINATE (ER) 25 MG TAB.ER.24H PO SCH (07:14)
[2022-03-24] MEDS: THIAMINE 100 MG TAB PO SCH ×2 (07:14→16:39)
[2022-03-24 07:40] VITALS: RESP 17
--- NOTE | 2022-03-24 09:21 | CA ---
Transthoracic Echo Report Name: Arya Maguire Age: 56 Gender: M : 1965 Exam Date: 03/24/2022 07:53 Exam Location: [place] [facility] Ht (in): 61 Wt (lb): 214 Ordering Physician: Karen Shea Attending/Referring Phys: [id number], [facility] Vice President Surgical Sales Lindsay Eastman RDCS Procedure CPT: Indications: LV function Cardiac Hx: HTN Technical Quality: Good Contrast 1: Total Dose (mL): Contrast 2: Total Dose (mL): MEASUREMENTS (Male / Female) Normal Values 2D ECHO LV Diastolic Diameter PLAX 4.9 cm 4.2 - 5.9 / 3.9 - 5.3 cm LV Systolic Diameter PLAX 2.5 cm IVS Diastolic Thickness 1.5 cm 0.6 - 1.0 / 0.6 - 0.9 cm LVPW Diastolic Thickness 1.6 cm 0.6 - 1.0 / 0.6 - 0.9 cm LV Relative Wall Thickness 0.6 LA Volume 66.0 cm??? 18 - 58 / 22 - 52 cm??? M-MODE Aortic Root Diameter MM 3.8 cm LA Systolic Diameter MM 2.9 cm LA Ao Ratio MM 0.8 MV E Point Septal Separation 1.4 cm AV Cusp Separation MM 2.3 cm DOPPLER AV Peak Velocity 109.4 cm/s AV Peak Gradient 4.8 mmHg AI Peak Velocity 186.5 cm/s AI Peak Gradient 13.9 mmHg AI Pressure Half Time 982.2 ms MV Area PHT 3.6 cm??? Mitral E Point Velocity 68.4 cm/s Mitral A Point Velocity 62.6 cm/s Mitral E to A Ratio 1.1 MV Deceleration Time 210.8 ms MV E' Velocity 5.7 cm/s Mitral E to MV E' Ratio 12.0 TR Peak Velocity 188.8 cm/s TR Peak Gradient 14.3 mmHg Right Ventricular Systolic Press 19.3 mmHg FINDINGS Left Ventricle left ventricular cavity size normal. LV increased septal wall thickness. Left ventricular ejection fraction is estimated at 45-50_ %. Grade 1 diastolic dysfunction. Right Ventricle The right ventricle is normal in size and function. Right Atrium The right atrium is normal in size. Left Atrium Mildly increased left atrial volume. Mildly increased left atrial area. Mitral Valve Structurally normal mitral valve without significant stenosis or prolapse. There is no mitral regurgitation. Aortic Valve Structurally normal aortic valve without significant sclerosis or stenosis. There is mild aortic regurgitation. Tricuspid Valve Structurally normal tricuspid valve without significant stenosis. Pulmonary artery systolic pressure is normal. Mild tricuspid regurgitation. Pulmonic Valve Structurally normal pulmonic valve without significant stenosis. There is no pulmonic regurgitation. Pericardium Normal pericardium without effusion. Aorta Normal aortic root dimension. CONCLUSIONS LV size is normal ejection fraction is about 50% without wall motion abnormality. There is mild mitral and aortic insufficiency. No pericardial effusion Previewed by: Dr. Yumi Cleary MD (Electronically Signed) Final Date: 24 March 2022 09:20
--- NOTE | 2022-03-24 10:12 | P.PN ---
Subjective Progress Note Date: 03/24/22 HISTORY OF PRESENT ILLNESS: This is a 56-year-old male with a past medical history significant for alcohol abuse. 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 We have been asked to see the patient in consultation for chest pain. Patient examined at the bedside. The patient was drinking beer yesterday when he began to develop chest pain. He was brought to the hospital via EMS. The patient states the pain was in the middle of his chest. He was given aspirin in route by EMS. He denied SOB. Denies nausea or vomiting. He was found to have left sided rib fractures from a fall. No complaints of chest pain or pressure this morning. * EKG reveals sinus mechanism with no signs of acute ischemia * Chest xray negative for acute process * Chest CTA: Negative for PE. Mild cardiomegaly. Small hiatal hernia. Hepatic steatois. Multiple left-sided anterior lower rib fractures. * Laboratory data: WBC 4.14. Hemoglobin 12.5. Platelet count 181. Sodium 139. Potassium 3.6. BUN 11.5. Creatinine 0.7. AST 49. ALT 69. Troponin negative 3. Serum alcohol 310. * Current home cardiac medications include none * Most recent echocardiogram obtained in April 2021 revealed ejection fraction 40-45%, basal lateral, basal posterior, midline lateral, and mid posterior LV wall hypokinesis, mild aortic regurgitation, mild tricuspid regurgitation, mild pulmonary hypertension 03/24/2022 Patient examined this morning at the bedside. Patient denies any further chest pain or pressure. Denies SOB. Echo completed revealing ejection fraction 45-50%. PHYSICAL EXAM: VITAL SIGNS: Reviewed. GENERAL: Well-developed in no acute distress. HEENT: Head is normocephalic. Pupils are equal, round. Sclerae anicteric. Mucous membranes of the mouth are moist. Neck supple. No JVD or thyromegaly LUNGS: Respirations even and unlabored. Lungs essentially clear to auscultation bilaterally. HEART: Regular rate and rhythm. S1 and S2 heard. ABDOMEN: Soft. Nondistended. Nontender. EXTREMITIES: Normal range of motion. No clubbing or cyanosis. Peripheral pulses intact. No lower extremity edema NEUROLOGIC: Awake and alert. Oriented x 3. ASSESSMENT: Chest pain, atypical, troponin negative 3 Acute alcohol intoxication History of alcohol abuse Left-sided rib fractures Mild cardiomyopathy, per echo in 2021, unclear if ischemic or nonischemic History of paroxysmal atrial fibrillation, per cardiology documentation 2020 PLAN: Continue current dose of metoprolol Patient is stable for discharge home today from a cardiac standpoint We will sign off. Please reconsult if needed. Nurse practitioner note has been reviewed by physician. Signing provider agrees with the documented findings, assessment, and plan of care. Objective - Vital Signs Vital signs: Vital Signs Temp 97.9 F 03/24/22 07:40 Pulse 73 03/24/22 07:40 Resp 17 03/24/22 07:40 BP 129/84 03/24/22 07:40 Pulse Ox 100 03/24/22 07:40 FiO2 Intake & Output 03/23/22 03/24/22 03/24/22 18:59 06:59 18:59 Output Total 1575 Balance -1575 Weight 97.4 kg Output: Urine 1575 Other: Voiding Method Urinal # Bowel Movements 1 - Labs CBC & Chem 7: 03/23/22 06:12 03/23/22 06:12
[2022-03-24 14:17] VITALS: BP 135/72; PULSE 85; TEMP 97.7
[2022-03-24] MEDS ORDERED: LORazepam 2 MG/ML INJ IV PRN ×2 (16:01)
--- NOTE | 2022-03-26 19:27 | CDI ---
Documentation Clarification Form Date: 03/26/2022 07:14:27 PM From: Osiris [place] Phone: Admit Date: 03/22/2022 01:26:00 PM Patient Name: Arya Maguire Visit Number: [id number] Discharge Date: 03/24/2022 05:04:00 PM ATTENTION: The Clinical Documentation Specialists (CDI) and [facility] Coding Staff appreciate your assistance in clarifying documentation. Please respond to the clarification below the line at the bottom and electronically sign. The CDI & [facility] Coding staff will review the response and follow-up if needed. Please note: Queries are made part of the Legal Health Record. If you have any questions, please contact the author of this message via ITS. Dr. Dre Loyola History ofalcohol abuse with Intoxication & withdrawal is documented per ED and patient is noted to have Hepatic steatosis. Please clarify if there is a relationship between alcohol abuse and Hepatic steatosis. History/Risk Factors: 56yo M, Chest pain, atypical, troponin negative 3, alcohol abuse w intoxication BAL 310 then withdrawal, multi Left-sided rib fractures d/t fall, unspec cardiomyopathy, Hx PAF, Hx CABG, HTN Dz, AR, MR, pHTN Clinical Indicators: ChestCTA: Negative for PE. Mildcardiomegaly. Smallhiatal hernia. Hepatic steatosis. Multiple left-sided anterior lowerrib fractures. Treatment: Continue current dose of metoprolol. Patient is stable for discharge home today from a cardiac standpoint. We will sign off. Please re-consult if needed. Please clarify the relationship, if any, which is clinically appropriate for this patient: [ ] Hepatic steatosis due to Alcohol abuse [ ] Hepatic steatosis not due to Alcohol abuse [ ] Other explanation of clinical findings (please specify) [ ] Unable to determine (no explanation for clinical findings) (Template Last Revised: October 2020) MTDD
== END 2022-03-24 17:04 | disposition home or self-care (01) | DRG 184 ==
LOC: EC 08:51 → 3SCARD 13:26 → 4SSUR 15:22
PROVIDERS: ADMIT Family Medicine; ATTEND Family Medicine
DX: S22.42XA Multiple fractures of ribs, left side, initial encounter for closed fracture (principal); F10.139 Alcohol abuse with withdrawal, unspecified; I42.9 Cardiomyopathy, unspecified; I27.20 Pulmonary hypertension, unspecified; I08.2 Rheumatic disorders of both aortic and tricuspid valves; I11.9 Hypertensive heart disease without heart failure; K76.0 Fatty (change of) liver, not elsewhere classified; F10.129 Alcohol abuse with intoxication, unspecified; E83.42 Hypomagnesemia; R07.2 Precordial pain; W19.XXXA Unspecified fall, initial encounter; K44.9 Diaphragmatic hernia without obstruction or gangrene; I48.0 Paroxysmal atrial fibrillation; I25.10 Atherosclerotic heart disease of native coronary artery without angina pectoris; R79.1 Abnormal coagulation profile; Y90.9 Presence of alcohol in blood, level not specified; Z87.820 Personal history of traumatic brain injury; Z79.82 Long term (current) use of aspirin; Z79.899 Other long term (current) drug therapy; Z95.1 Presence of aortocoronary bypass graft
CPT/HCPCS: 36415; 71046; 71275; 80053; 80061; 80320; 83690; 83735; 83880; 84484; 85025; 85379; 85610; 85730; 93005; 93306; 96365; 96366; 96372; 99285